=== PATIENT | female | born 1980 | race Caucasian/White ===

== ENCOUNTER 2017-11-20 12:41 | Emergency (ER) | payer BC, OTHER ==
[2017-11-20] MEDS ORDERED: ACETAMINOPHEN TAB 500 MG TAB PO STA (13:02)
--- NOTE | 2017-11-20 13:05 | ED ---
General Adult HPI - General Chief complaint: Upper Respiratory Infection Stated complaint: SOB Time Seen by Provider: 11/20/17 12:57 Source: patient, RN notes reviewed Mode of arrival: ambulatory Limitations: no limitations - History of Present Illness Initial comments: 37 yo female presents to the ER with cc of fever. Patient states that she's had this for the past 3 days. She's had some cough and difficulty in breathing as well. She had her son's breathing treatment which did not seem to help. She states she's been altering Motrin and Tylenol and she is due for Tylenol 1: 00 today. She states that she just cannot seem to get the fever to break and she just feels body aches this cough and congestion she thought that she should be seen. Patient denies any other symptoms at this time. Patient denies any nausea or vomiting with this. Patient denies any recent back pain, abdominal pain, nausea vomiting, numbness or tingling, dysuria or hematuria, constipation or diarrhea, headaches or visual changes, or any other current symptoms. - Related Data Home Medications Medication Instructions Recorded Confirmed Clarithromycin [Biaxin] 1,000 mg PO DAILY 03/20/14 03/20/14 Desvenlafaxine Succinate [Pristiq 100 mg PO DAILY 03/20/14 03/20/14 ER] Previous Rx's Medication Instructions Recorded HYDROcodone/APAP 7.5-325MG [Foster 1 each PO Q6HR PRN #15 tab 03/21/14 7.5] Ondansetron Odt [Zofran Odt] 4 mg PO Q8HR PRN #21 tab 03/21/14 methylPREDNISolone [Medrol] 4 mg PO DIRECTED #1 tab.ds.pk 03/21/14 Allergies Allergy/AdvReac Type Severity Reaction Status Date / Time No Known Allergies Allergy Verified 11/20/17 12:56 Review of Systems ROS Statement: Those systems with pertinent positive or pertinent negative responses have been documented in the HPI. ROS Other: All systems not noted in ROS Statement are negative. Past Medical History Past Medical History: No Reported History History of Any Multi-Drug Resistant Organisms: None Reported Past Surgical History: Section Past Psychological History: No Psychological Hx Reported Smoking Status: Never smoker Past Alcohol Use History: None Reported Past Drug Use History: None Reported General Exam - General Exam Comments Initial Comments: General exam: Alert, active, comfortable in no apparent distress Head: Normocephalic Eyes: Normal reaction of pupils, equal size, normal range of extraocular motion Ears: normal external ear canals, pink tympanic membranes with normal cone of light Nose: clear with pink turbinates Throat: no erythema or exudates with normal sized tonsils Neck: no masses, no nuchal rigidity Chest: no chest wall deformity Lungs: equal air entry with no crackles or wheeze CVS: S1 and S2 normal with no audible mumurs, regular rhythm Abdomen: no hepatosplenomegaly, normal bowel sounds, no guarding or rigidity Spine: no scoliosis or deformity Skin: no rashes Neurological: No focal deficits, tone is normal in all 4 extremities Limitations: no limitations Course Vital Signs 11/20/17 12:54 Temperature 101.2 F H Pulse Rate 111 H Respiratory 18 Rate Blood Pressure 130/92 O2 Sat by Pulse 98 Oximetry Medical Decision Making - Medical Decision Making 37-year-old female presents for cough fever. This time patient is positive for influenza A. At this time she is on of her treatment. We discussed continuing Motrin Tylenol. We discussed return parameters and follow-up and all questions. Patient stated that she understood and she is given this plan. This time she will be discharged home. - Radiology Data Radiology results: report reviewed, image reviewed Disposition Clinical Impression: Influenza A Disposition: HOME SELF-CARE Condition: Stable Instructions: Influenza (ED) Additional Instructions: Please use medication as discussed. Please follow up with family doctor if symptoms have not improved over the next two days. Please return to the emergency room if your symptoms increase or worsen or for any other concerns. Referrals: Bibi Zarate III, MD [Primary Care Provider] - 1-2 days Time of Disposition: 13:49
--- NOTE | 2017-11-20 13:20 | XR ---
EXAMINATION TYPE: XR chest 2V DATE OF EXAM: 11/20/2017 COMPARISON: 03/20/2014 HISTORY: Flulike symptoms TECHNIQUE: Frontal and lateral views of the chest are obtained. FINDINGS: There is no focal air space opacity, pleural effusion, or pneumothorax seen. The cardiac silhouette size is upper limits of normal and has mildly enlarged since the prior exam, partially att ributable to differences in technique and inspiration. The osseous structures are intact. IMPRESSION: No acute cardiopulmonary process.
[2017-11-20 14:15] VITALS: BP 121/65; PULSE 99; RESP 16; TEMP 100
== END 2017-11-20 14:13 | disposition home or self-care (01) ==
LOC: EC 12:41
DX: J10.1 Influenza due to other identified influenza virus with other respiratory manifestations (principal); Z79.899 Other long term (current) drug therapy
CPT/HCPCS: 71046; 87502; 99283

== ENCOUNTER → 2017-12-12 | Outpatient (CLI) | payer OTHER | END | disposition home or self-care (01) | LOC: LABWHC1 13:24 | PROVIDERS: ATTEND Nurse Practitioner Family | DX: M79.1 Myalgia (principal) | CPT/HCPCS: 36415; 85652 ==

== ENCOUNTER 2019-02-25 17:23 | Emergency (ER) | payer OTHER ==
--- NOTE | 2019-02-25 18:51 | ED ---
General Adult HPI - General Chief complaint: Extremity Injury, Lower Stated complaint: Rt leg pain Time Seen by Provider: 02/25/19 17:47 Source: patient Mode of arrival: ambulatory Limitations: no limitations - History of Present Illness Initial comments: Patient is a 39-year-old female presents to the emergency department with right knee pain. Patient states she developed minor swelling and pain yesterday so she placed an ice pack and took 800 milligram ibuprofen to control pain. Patient states when she woke up this morning the knee was even more painful and more swollen. Patient states the knee is also warm. Patient reports the pain is exacerbated with any movement. Patient does report slight pain radiation along the vastus lateralis. Patient denies hitting the knee against any objects. Patient also denies having systemic fever although she has been taking the ibuprofen since her condition has occurred. - Related Data Home Medications Medication Instructions Recorded Confirmed DULoxetine HCL [Cymbalta] 120 mg PO HS 02/25/19 02/25/19 Allergies Allergy/AdvReac Type Severity Reaction Status Date / Time No Known Allergies Allergy Verified 02/25/19 18:11 Review of Systems ROS Statement: Those systems with pertinent positive or pertinent negative responses have been documented in the HPI. ROS Other: All systems not noted in ROS Statement are negative. Past Medical History Past Medical History: No Reported History History of Any Multi-Drug Resistant Organisms: None Reported Past Surgical History: Section Additional Past Surgical History / Comment(s): D&C Past Psychological History: No Psychological Hx Reported Smoking Status: Never smoker Past Alcohol Use History: None Reported Past Drug Use History: None Reported General Exam Limitations: no limitations General appearance: alert, in no apparent distress Head exam: Present: atraumatic, normocephalic, normal inspection Eye exam: Present: normal appearance, PERRL, EOMI. Absent: scleral icterus, conjunctival injection Pupils: Present: normal accommodation ENT exam: Present: normal exam Neck exam: Present: normal inspection, full ROM Respiratory exam: Present: normal lung sounds bilaterally. Absent: respiratory distress, wheezes Cardiovascular Exam: Present: regular rate, normal rhythm, normal heart sounds Right Hip exam: Present: normal inspection, full ROM Upper Leg exam: Present: tenderness (Mild pain with movement along the vastus lateralis.). Absent: swelling Knee exam: Present: full ROM (Limited range of motion due to pain.), tenderness (Pain with flexion and extension.), swelling, erythema, pain w/ pronation/supination. Absent: abrasion, laceration, ecchymosis, deformity Lower Leg exam: Present: normal inspection, full ROM Ankle exam: Present: normal inspection, full ROM Foot/Toe exam: Present: normal inspection, full ROM Neurovascular tendon exam: Present: no vascular compromise Gait: observed and limited by pain Back exam: Present: normal inspection, full ROM Neurological exam: Present: alert, oriented X3 Psychiatric exam: Present: normal affect, normal mood Skin exam: Present: warm, normal color Course Vital Signs 02/25/19 02/25/19 17:34 22:22 Temperature 98.1 F 98.0 F Pulse Rate 110 H 79 Respiratory 20 18 Rate Blood Pressure 123/73 132/81 O2 Sat by Pulse 98 99 Oximetry Medical Decision Making - Medical Decision Making Patient 39-year-old female presented to emergency department for right knee pain and swelling. X-ray of the knee was negative. Ultrasound duplex of her right calf was negative for DVT but is suggestive of a popliteal cyst. Patient given Toradol to alleviate pain. Patient advised to alternate between Tylenol and ibuprofen for pain control. Patient advised to follow up orthopedics. Patient advised to return to emergency department if symptoms worsen. Case discussed with physician. Disposition Clinical Impression: Knee pain, acute Disposition: HOME SELF-CARE Condition: Stable Instructions (If sedation given, give patient instructions): Knee Sprain (DC) Additional Instructions: Please alternate between Tylenol and ibuprofen for pain control. Please follow- up with orthopedics. Please refer to emergency department if symptoms worsen. Is patient prescribed a controlled substance at d/c from ED?: No Referrals: Bibi Zarate III, MD [Primary Care Provider] - 1-2 days Daniel Crabtree MD [STAFF PHYSICIAN] - 1-2 days Time of Disposition: 22:45
--- NOTE | 2019-02-25 19:01 | XR ---
EXAMINATION TYPE: XR knee complete RT DATE OF EXAM: 02/25/2019 COMPARISON: NONE HISTORY: Pain and swelling TECHNIQUE: 3 views FINDINGS: There is evidence of mild knee joint effusion. I see no fracture nor dislocation. Joint spa truman are fairly normal. IMPRESSION: Knee joint effusion. No fracture seen.
--- NOTE | 2019-02-25 20:42 | US ---
EXAMINATION TYPE: US venous doppler duplex LE RT DATE OF EXAM: 02/25/2019 8:18 PM COMPARISON: NONE CLINICAL HISTORY: Pain. Right leg pain at knee and edema. SIDE PERFORMED: Right TECHNIQUE: The lower extremity deep venous system is examined utilizing real time linear array sonog ronda with graded compression, doppler sonography and color-flow sonography. VESSELS IMAGED: External Iliac Vein (EIV) Common Femoral Vein Deep Femoral Vein Greater Saphenous Vein * Femoral Vein Popliteal Vein Small Saphenous Vein * Proximal Calf Veins (* superficial vessels) Right Leg: Negative for DVT Area of fluid seen lateral to knee area of pain measuring 2.8 x .6 x 1.8cm. IMPRESSION: No evidence of deep venous thrombosis. Fluid collection suggestive of popliteal cyst.
[2019-02-25] MEDS ORDERED: KETOROLAC 30 MG/ML 1 ML VIAL IM STA (22:06)
[2019-02-25 22:23] VITALS: BP 132/81; PULSE 79; RESP 18; TEMP 98
[2019-02-26] MEDS ORDERED: KETOROLAC 30 MG/ML 1 ML VIAL IM SCH
== END 2019-02-25 23:05 | disposition home or self-care (01) ==
LOC: EC 17:23
DX: M25.561 Pain in right knee (principal); M25.461 Effusion, right knee; Z79.899 Other long term (current) drug therapy
CPT/HCPCS: 73562; 93971; 99283; 96372; J1885

== ENCOUNTER 2019-10-19 20:10 | Emergency (ER) | payer OTHER ==
[2019-10-19 20:24] VITALS: TEMP 98.3
[2019-10-19] MEDS ORDERED: METOCLOPRAMIDE 5 MG/ML 2 ML VIAL IVP STA (20:43)
[2019-10-19] MEDS ORDERED: ACETAMINOPHEN TAB 325 MG TAB PO STA (20:43)
[2019-10-19] MEDS ORDERED: MAGNESIUM SULFATE-D5W PMX 1 GM in DEXTROSE/WATER 1 100ML.BAG IVPB ONE (20:43)
[2019-10-19] MEDS ORDERED: diphenhydrAMINE 50 MG/ML 1 ML VIAL IVP STA (20:43)
[2019-10-19] MEDS ORDERED: SODIUM CHLORIDE 0.9% 1,000 ML IV STA (20:43)
--- NOTE | 2019-10-19 20:54 | ED ---
General Adult HPI - General Chief complaint: Headache Stated complaint: MIGRAIN, PASSED OUT IN SHOWER Time Seen by Provider: 10/19/19 20:32 Source: patient, RN notes reviewed, old records reviewed Mode of arrival: ambulatory Limitations: no limitations - History of Present Illness Initial comments: 39-year-old female presenting with four-day history of headache. Patient has history of migraine headaches. States the character of this headache is typical of her migraines but does not typically last 4 days. Gradual onset of a frontal and occipital headache. Some associated nausea, no vomiting. Mild photophobia which is typical of her headaches. She takes sumatriptan and it has been seen by neurology regarding these headaches. She also reports generalized weakness and fatigue. She has a history of fibromyalgia and rheumatoid arthritis. She denies focal numbness or weakness. Denies thunderclap headache. This is not the worst headache of her life. She denies URI symptoms. Denies chest pain or dyspnea. Denies abdominal pain. She's had decreased appetite and decreased by mouth intake over the past several days. She had been taking a hot shower prior to arrival and had momentary loss consciousness, she was lightheaded prior to t his. - Related Data Home Medications Medication Instructions Recorded Confirmed DULoxetine HCL [Cymbalta] 120 mg PO HS 02/25/19 02/25/19 Allergies Allergy/AdvReac Type Severity Reaction Status Date / Time No Known Allergies Allergy Verified 10/19/19 20:24 Review of Systems ROS Statement: Those systems with pertinent positive or pertinent negative responses have been documented in the HPI. ROS Other: All systems not noted in ROS Statement are negative. Past Medical History Past Medical History: No Reported History History of Any Multi-Drug Resistant Organisms: None Reported Past Surgical History: Section Additional Past Surgical History / Comment(s): D&C Past Psychological History: No Psychological Hx Reported Smoking Status: Never smoker Past Alcohol Use History: None Reported Past Drug Use History: None Reported General Exam Limitations: no limitations General appearance: alert, in no apparent distress Head exam: Present: atraumatic, normocephalic Eye exam: Present: normal appearance, PERRL, EOMI. Absent: scleral icterus, periorbital swelling, periorbital tenderness ENT exam: Present: mucous membranes dry Neck exam: Present: normal inspection. Absent: tenderness, meningismus Respiratory exam: Present: normal lung sounds bilaterally. Absent: respiratory distress, wheezes, rales Cardiovascular Exam: Present: regular rate, normal rhythm GI/Abdominal exam: Present: soft. Absent: distended, tenderness, guarding Extremities exam: Present: normal inspection, normal capillary refill. Absent: pedal edema, calf tenderness Neurological exam: Present: alert, oriented X3, CN II-XII intact. Absent: motor sensory deficit Psychiatric exam: Present: normal affect, normal mood Skin exam: Present: warm, dry, intact. Absent: cyanosis, diaphoretic Course Vital Signs 10/19/19 10/19/19 20:22 21:43 Temperature 98.3 F Pulse Rate 75 81 Respiratory 16 16 Rate Blood Pressure 146/96 139/71 O2 Sat by Pulse 98 98 Oximetry EKG Findings - EKG Comments: EKG Findings:: EKG: Normal sinus rhythm, low voltage, rate of 73, MO interval 206, QRS duration 98, QTC 436 Medical Decision Making - Medical Decision Making 39 -year-old female presenting for evaluation of headache. Headaches similar in character to previous migraine headaches. She's had this for 4 days. She's had decreased appetite and oral intake over this time. No fever. No alarming features on history or physical exam. Imaging reviewed from previous headache workup, including CT angiography which is negative for any dangerous of. She has stable vitals and a nonfocal neurologic exam. Normal CBC, normal CMP, negative urinalysis. She's given Reglan, Benadryl, IV hydration and on reevaluation she states her headache is significantly improved. She has good outpatient follow-up. She will return with worsening or changing symptoms. - Lab Data Result diagrams: 10/19/19 21:05 10/19/19 21:05 Lab Results 10/19/19 10/19/19 10/19/19 Range/Units 21:05 21:05 21:30 WBC 8.3 (3.8-10.6) k/uL RBC 4.51 (3.80-5.40) m/uL Hgb 12.4 (11.4-16.0) gm/dL Hct 38.5 (34.0-46.0) % MCV 85.5 (80.0-100.0) fL MCH 27.4 (25.0-35.0) pg MCHC 32.1 (31.0-37.0) g/dL RDW 14.5 (11.5-15.5) % Plt Count 350 (150-450) k/uL Neutrophils % 61 % Lymphocytes % 29 % Monocytes % 6 % Eosinophils % 2 % Basophils % 0 % Neutrophils # 5.1 (1.3-7.7) k/uL Lymphocytes # 2.4 (1.0-4.8) k/uL Monocytes # 0.5 (0-1.0) k/uL Eosinophils # 0.1 (0-0.7) k/uL Basophils # 0.0 (0-0.2) k/uL Sodium 137 (137-145) mmol/L Potassium 4.0 (3.5-5.1) mmol/L Chloride 105 (98-107) mmol/L Carbon Dioxide 24 (22-30) mmol/L Anion Gap 8 mmol/L BUN 12 (7-17) mg/dL Creatinine 0.73 (0.52-1.04) mg/dL Est GFR (CKD-EPI)AfAm >90 (>60 ml/min/1.73 sqM) Est GFR (CKD-EPI)NonAf >90 (>60 ml/min/1.73 sqM) Glucose 86 (74-99) mg/dL Calcium 9.4 (8.4-10.2) mg/dL Total Bilirubin 0.4 (0.2-1.3) mg/dL AST 26 (14-36) U/L ALT 15 (4-34) U/L Alkaline Phosphatase 64 (38-126) U/L Total Protein 6.8 (6.3-8.2) g/dL Albumin 4.3 (3.5-5.0) g/dL Urine Color Urine Appearance (Clear) Urine pH (5.0-8.0) Ur Specific Mayer (1.001-1.035) Urine Protein (Negative) Urine Glucose (UA) (Negative) Urine Ketones (Negative) Urine Blood (Negative) Urine Nitrite (Negative) Urine Bilirubin (Negative) Urine Urobilinogen (<2.0) mg/dL Ur Leukocyte Esterase (Negative) Urine HCG, Qual Not Detected (Not Detectd) 10/19/19 Range/Units 21:30 WBC (3.8-10.6) k/uL RBC (3.80-5.40) m/uL Hgb (11.4-16.0) gm/dL Hct (34.0-46.0) % MCV (80.0-100.0) fL MCH (25.0-35.0) pg MCHC (31.0-37.0) g/dL RDW (11.5-15.5) % Plt Count (150-450) k/uL Neutrophils % % Lymphocytes % % Monocytes % % Eosinophils % % Basophils % % Neutrophils # (1.3-7.7) k/uL Lymphocytes # (1.0-4.8) k/uL Monocytes # (0-1.0) k/uL Eosinophils # (0-0.7) k/uL Basophils # (0-0.2) k/uL Sodium (137-145) mmol/L Potassium (3.5-5.1) mmol/L Chloride (98-107) mmol/L Carbon Dioxide (22-30) mmol/L Anion Gap mmol/L BUN (7-17) mg/dL Creatinine (0.52-1.04) mg/dL Est GFR (CKD-EPI)AfAm (>60 ml/min/1.73 sqM) Est GFR (CKD-EPI)NonAf (>60 ml/min/1.73 sqM) Glucose (74-99) mg/dL Calcium (8.4-10.2) mg/dL Total Bilirubin (0.2-1.3) mg/dL AST (14-36) U/L ALT (4-34) U/L Alkaline Phosphatase (38-126) U/L Total Protein (6.3-8.2) g/dL Albumin (3.5-5.0) g/dL Urine Color Yellow Urine Appearance Clear (Clear) Urine pH 6.5 (5.0-8.0) Ur Specific Mayer 1.012 (1.001-1.035) Urine Protein Negative (Negative) Urine Glucose (UA) Negative (Negative) Urine Ketones Negative (Negative) Urine Blood Negative (Negative) Urine Nitrite Negative (Negative) Urine Bilirubin Negative (Negative) Urine Urobilinogen <2.0 (<2.0) mg/dL Ur Leukocyte Esterase Negative (Negative) Urine HCG, Qual (Not Detectd) Disposition Clinical Impression: Migraine headache Disposition: HOME SELF-CARE Condition: Fair Instructions (If sedation given, give patient instructions): Migraine Headache (ED) Is patient prescribed a controlled substance at d/c from ED?: No Referrals: Bibi Zarate III, MD [Primary Care Provider] - 1-2 days Time of Disposition: 22:10
[2019-10-19 21:14] LABS: Basophils % (A) 0 %; Eosinophils # (A) 0.1 k/uL (0-0.7); Eosinophils % (A) 2 %; HCT 38.5 % (34.0-46.0); HGB 12.4 gm/dL (11.4-16.0); Lymphocytes # (A) 2.4 k/uL (1.0-4.8); Lymphocytes % (A) 29 %; MCH 27.4 pg (25.0-35.0); MCHC 32.1 g/dL (31.0-37.0); MCV 85.5 fL (80.0-100.0); Mean Platelet Volume 6.7; Monocytes # (A) 0.5 k/uL (0-1.0); Monocytes % (A) 6 %; Neutrophils # (A) 5.1 k/uL (1.3-7.7); Neutrophils % (A) 61 %; Platelet Count 350 k/uL (150-450); RBC 4.51 m/uL (3.80-5.40); RDW 14.5 % (11.5-15.5); WBC 8.3 k/uL (3.8-10.6)
[2019-10-19 21:22] LABS: ALT 15 U/L (4-34); AST 26 U/L (14-36); African American GFR (CKD) >90 (>60 ml/min/1.73 sqM); Albumin 4.3 g/dL (3.5-5.0); Alkaline Phosphatase 64 U/L (38-126); Anion Gap 8 mmol/L; Blood Urea Nitrogen 12 mg/dL (7-17); Calcium 9.4 mg/dL (8.4-10.2); Carbon Dioxide 24 mmol/L (22-30); Chloride 105 mmol/L (98-107); Glucose 86 mg/dL (74-99); Non-African American GFR(CKD) >90 (>60 ml/min/1.73 sqM); Sodium 137 mmol/L (137-145); Total Bilirubin 0.4 mg/dL (0.2-1.3); Total Protein 6.8 g/dL (6.3-8.2)
[2019-10-19 21:54] LABS: Appearance,Urine Clear (Clear); Bilirubin,Urine Negative (Negative); Blood,Urine Negative (Negative); Color,Urine Yellow; Glucose,Urine (UA) Negative (Negative); Ketones,Urine Negative (Negative); Leukocyte Esterase,Urine Negative (Negative); Nitrite,Urine Negative (Negative); PH, Urine 6.5 (5.0-8.0); Protein,Urine Negative (Negative); Specific Gravity,Urine 1.012 (1.001-1.035); Urobilinogen,Urine <2.0 mg/dL (<2.0)
[2019-10-19 22:20] VITALS: BP 131/72; PULSE 72; RESP 18
== END 2019-10-19 22:20 | disposition home or self-care (01) ==
LOC: EC 20:10
DX: G43.909 Migraine, unspecified, not intractable, without status migrainosus (principal); R53.1 Weakness; R53.83 Other fatigue; M79.7 Fibromyalgia; Z79.899 Other long term (current) drug therapy
CPT/HCPCS: 99284; 96365; 96375 ×2; 36415; 93005; 80053; 85025; 81003; 81025; J1200; J2765; J3475

== ENCOUNTER 2020-04-02 00:13 | Emergency (ER) | payer OTHER ==
[2020-04-02] MEDS ORDERED: ACETAMINOPHEN TAB 325 MG TAB PO STA (02:17)
[2020-04-02 02:19] LABS: Basophils % (A) 1 %; Eosinophils # (A) 0.1 k/uL (0-0.7); Eosinophils % (A) 1 %; HCT 41.8 % (34.0-46.0); HGB 13.5 gm/dL (11.4-16.0); Lymphocytes % (A) 18 %; MCHC 32.3 g/dL (31.0-37.0); MCV 86.6 fL (80.0-100.0); Mean Platelet Volume 7.6; Monocytes # (A) 0.3 k/uL (0-1.0); Monocytes % (A) 6 %; Neutrophils # (A) 3.9 k/uL (1.3-7.7); Neutrophils % (A) 71 %; Platelet Count 265 k/uL (150-450); RBC 4.83 m/uL (3.80-5.40); RDW 14.3 % (11.5-15.5); WBC 5.4 k/uL (3.8-10.6)
[2020-04-02] MEDS ORDERED: SODIUM CHLORIDE 0.9% 1,000 ML IV ONE (02:21)
[2020-04-02 02:48] LABS: ALT 100 U/L (4-34); AST 105 U/L (14-36); African American GFR (CKD) >90 (>60 ml/min/1.73 sqM); Albumin 3.9 g/dL (3.5-5.0); Alkaline Phosphatase 81 U/L (38-126); Amylase 63 U/L (30-110); Anion Gap 8 mmol/L; Blood Urea Nitrogen 10 mg/dL (7-17); C Reactive Protein 34.7 mg/L (<10.0); Calcium 8.9 mg/dL (8.4-10.2); Carbon Dioxide 24 mmol/L (22-30); Chloride 103 mmol/L (98-107); Glucose 85 mg/dL (74-99); Non-African American GFR(CKD) >90 (>60 ml/min/1.73 sqM); Potassium 4.3 mmol/L (3.5-5.1); Sodium 135 mmol/L (137-145); Total Bilirubin <0.1 mg/dL (0.2-1.3); Total Protein 6.5 g/dL (6.3-8.2)
[2020-04-02 03:09] VITALS: RESP 16
[2020-04-02 03:36] LABS: Appearance,Urine Clear (Clear); Bilirubin,Urine Negative (Negative); Blood,Urine Negative (Negative); Color,Urine Yellow; Glucose,Urine (UA) Negative (Negative); Ketones,Urine 1+ (Negative); Leukocyte Esterase,Urine Negative (Negative); Nitrite,Urine Negative (Negative); PH, Urine 6.5 (5.0-8.0); Protein,Urine Negative (Negative); Specific Gravity,Urine 1.033 (1.001-1.035); Urobilinogen,Urine <2.0 mg/dL (<2.0)
--- NOTE | 2020-04-02 03:54 | CT ---
EXAMINATION TYPE: CT abdomen pelvis w con DATE OF EXAM: 04/02/2020 COMPARISON: 12/08/2010 HISTORY: General Abd. pain CT DLP: 873.1 mGycm Automated exposure control for dose reduction was used. CONTRAST: Performed with IV Contrast, patient injected with 100 mL of Isovue 300. Lung bases are clear. There is no pleural effusion. Heart size is normal. There is no pericardial eff usion. Liver and gallbladder appear normal. Bile ducts are not dilated. Spleen appears normal. Stomach is in tact. There is no evidence of pancreatic mass. There is no adrenal mass. The kidneys have normal size and contour. There is no hydronephrosis. There is normal contrast opacification of the kidneys. Delayed images show fairly normal symmetric renal e xcretion. There is no retroperitoneal adenopathy. Bladder distends smoothly. There is no inguinal her hugo. There is no free fluid in the pelvis. Uterus is retroverted. There is no sign of a pelvic mass. There is large terminal ileum with fecal material. There is no sign of thickened appendix. Appendix i s partly seen filled with air and appears normal. There is retained fecal material throughout the lar ge bowel. Lumbar vertebra have normal spacing and alignment. Posterior elements are intact. Bony pelvis is inta ct. IMPRESSION: There is retained fecal material and constipation in the large bowel and backed up into the terminal ileum. Normal appendix. This is a change compared to old exam.
[2020-04-02] MEDS ORDERED: MORPHINE SULFATE 4 MG/ML SYRINGE IV STA (04:12)
[2020-04-02] MEDS ORDERED: ONDANSETRON 4 MG/2 ML VIAL IVP STA (04:12)
[2020-04-02] MEDS ORDERED: DEXTROSE 5%-0.45% NACL 1,000 ML IV ONE (04:13)
[2020-04-02 05:05] VITALS: BP 128/78; PULSE 90
[2020-04-02 05:15] VITALS: TEMP 98.9
--- NOTE | 2020-04-02 05:16 | ED ---
Abdominal Pain HPI - General Chief Complaint: Abdominal Pain Stated Complaint: Abdominal pain, fever Time Seen by Provider: 04/02/20 00:33 Source: patient Mode of arrival: ambulatory Limitations: no limitations - History of Present Illness MD Complaint: abdominal pain -: days(s) Location: LLQ, RLQ Radiation: none Migration to: no migration Severity: moderate Quality: cramping, fullness Consistency: constant Improves With: nothing Worsens With: nothing Associated Symptoms: constipation - Related Data Home Medications Medication Instructions Recorded Confirmed DULoxetine HCL [Cymbalta] 120 mg PO HS 02/25/19 04/03/20 Acetaminophen Tab [Tylenol] 1,000 mg PO Q6HR PRN 04/03/20 04/03/20 Meloxicam [Mobic] 15 mg PO HS 04/03/20 04/03/20 metFORMIN HCL [Glucophage] 500 mg PO BID 04/03/20 04/03/20 Allergies Allergy/AdvReac Type Severity Reaction Status Date / Time No Known Allergies Allergy Verified 04/03/20 20:29 Review of Systems ROS Statement: Those systems with pertinent positive or pertinent negative responses have been documented in the HPI. ROS Other: All systems not noted in ROS Statement are negative. Constitutional: Denies: fever, chills Respiratory: Denies: cough, dyspnea Cardiovascular: Denies: chest pain, palpitations, edema Gastrointestinal: Reports: abdominal pain, constipation. Denies: nausea, vomiting, diarrhea, melena, hematochezia Genitourinary: Denies: dysuria, hematuria Musculoskeletal: Denies: back pain Skin: Denies: rash Neurological: Denies: headache, weakness, numbness Past Medical History Past Medical History: No Reported History, Rheumatoid Arthritis (RA) Additional Past Medical History / Comment(s): fibermyalgia History of Any Multi-Drug Resistant Organisms: None Reported Past Surgical History: Section Additional Past Surgical History / Comment(s): D&C Past Psychological History: No Psychological Hx Reported Smoking Status: Never smoker Past Alcohol Use History: None Reported Past Drug Use History: None Reported General Exam Limitations: no limitations General appearance: alert, in no apparent distress Head exam: Present: atraumatic, normocephalic Eye exam: Present: normal appearance. Absent: scleral icterus, conjunctival injection ENT exam: Present: normal oropharynx Neck exam: Present: normal inspection Respiratory exam: Present: normal lung sounds bilaterally. Absent: respiratory distress, wheezes, rales, rhonchi, stridor Cardiovascular Exam: Present: regular rate, normal rhythm, normal heart sounds. Absent: systolic murmur, diastolic murmur, rubs, gallop GI/Abdominal exam: Present: soft. Absent: distended, tenderness, guarding, rebound, rigid, mass, pulsatile mass, hernia Extremities exam: Present: normal inspection, normal capillary refill. Absent: pedal edema, calf tenderness Back exam: Present: normal inspection. Absent: CVA tenderness (R), CVA tenderness (L) Neurological exam: Present: alert Skin exam: Present: warm, dry, intact, normal color. Absent: rash Course Vital Signs 04/02/20 04/02/20 04/02/20 00:16 01:25 03:00 Temperature 99.5 F 101.2 F H 100.1 F H Pulse Rate 94 101 H Respiratory 18 16 Rate Blood Pressure 147/87 134/94 O2 Sat by Pulse 98 98 Oximetry 04/02/20 04/02/20 04/02/20 04:00 05:00 05:15 Temperature 98.9 F Pulse Rate 97 90 Respiratory 16 16 Rate Blood Pressure 132/92 128/78 O2 Sat by Pulse 97 98 Oximetry Medical Decision Making - Medical Decision Making This patient is a 40-year-old woman presenting with bilateral lower abdominal pain that she states feels as if she is been constipated. The patient's is found to have mild elevation of the AST and ALT on labs. The patient is feeling better following medication and would prefer to go home and follow-up. I did send viral hepatitis panel though patient not having risk factors. Discussed appropriate further care and follow-up as well as return parameters. - Lab Data Result diagrams: 04/02/20 00:36 04/02/20 00:36 Lab Results 04/02/20 04/02/20 04/02/20 Range/Units 00:36 00:36 03:25 WBC 5.4 (3.8-10.6) k/uL RBC 4.83 (3.80-5.40) m/uL Hgb 13.5 (11.4-16.0) gm/dL Hct 41.8 (34.0-46.0) % MCV 86.6 (80.0-100.0) fL MCH 28.0 (25.0-35.0) pg MCHC 32.3 (31.0-37.0) g/dL RDW 14.3 (11.5-15.5) % Plt Count 265 (150-450) k/uL Neutrophils % 71 % Lymphocytes % 18 % Monocytes % 6 % Eosinophils % 1 % Basophils % 1 % Neutrophils # 3.9 (1.3-7.7) k/uL Lymphocytes # 1.0 (1.0-4.8) k/uL Monocytes # 0.3 (0-1.0) k/uL Eosinophils # 0.1 (0-0.7) k/uL Basophils # 0.0 (0-0.2) k/uL Sodium 135 L (137-145) mmol/L Potassium 4.3 (3.5-5.1) mmol/L Chloride 103 (98-107) mmol/L Carbon Dioxide 24 (22-30) mmol/L Anion Gap 8 mmol/L BUN 10 (7-17) mg/dL Creatinine 0.78 (0.52-1.04) mg/dL Est GFR (CKD-EPI)AfAm >90 (>60 ml/min/1.73 sqM) Est GFR (CKD-EPI)NonAf >90 (>60 ml/min/1.73 sqM) Glucose 85 (74-99) mg/dL Calcium 8.9 (8.4-10.2) mg/dL Total Bilirubin <0.1 L (0.2-1.3) mg/dL AST 105 H (14-36) U/L ALT 100 H (4-34) U/L Alkaline Phosphatase 81 (38-126) U/L C-Reactive Protein 34.7 H (<10.0) mg/L Total Protein 6.5 (6.3-8.2) g/dL Albumin 3.9 (3.5-5.0) g/dL Amylase 63 (30-110) U/L Lipase 249 (23-300) U/L Urine Color Urine Appearance (Clear) Urine pH (5.0-8.0) Ur Specific [place] (1.001-1.035) Urine Protein (Negative) Urine Glucose (UA) (Negative) Urine Ketones (Negative) Urine Blood (Negative) Urine Nitrite (Negative) Urine Bilirubin (Negative) Urine Urobilinogen (<2.0) mg/dL Ur Leukocyte Esterase (Negative) Urine HCG, Qual Not Detected (Not Detectd) Coronavirus (PCR) (Not Detected) Hepatitis A IgM Ab Hep Bs Antigen (Non-Reactive) Hep B Core IgM Ab (Non-Reactive) Hep C IgG Ab (Non-Reactive) Heterophile Antibody (Negative) 04/02/20 04/02/20 04/02/20 Range/Units 03:25 03:25 04:00 WBC (3.8-10.6) k/uL RBC (3.80-5.40) m/uL Hgb (11.4-16.0) gm/dL Hct (34.0-46.0) % MCV (80.0-100.0) fL MCH (25.0-35.0) pg MCHC (31.0-37.0) g/dL RDW (11.5-15.5) % Plt Count (150-450) k/uL Neutrophils % % Lymphocytes % % Monocytes % % Eosinophils % % Basophils % % Neutrophils # (1.3-7.7) k/uL Lymphocytes # (1.0-4.8) k/uL Monocytes # (0-1.0) k/uL Eosinophils # (0-0.7) k/uL Basophils # (0-0.2) k/uL Sodium (137-145) mmol/L Potassium (3.5-5.1) mmol/L Chloride (98-107) mmol/L Carbon Dioxide (22-30) mmol/L Anion Gap mmol/L BUN (7-17) mg/dL Creatinine (0.52-1.04) mg/dL Est GFR (CKD-EPI)AfAm (>60 ml/min/1.73 sqM) Est GFR (CKD-EPI)NonAf (>60 ml/min/1.73 sqM) Glucose (74-99) mg/dL Calcium (8.4-10.2) mg/dL Total Bilirubin (0.2-1.3) mg/dL AST (14-36) U/L ALT (4-34) U/L Alkaline Phosphatase (38-126) U/L C-Reactive Protein (<10.0) mg/L Total Protein (6.3-8.2) g/dL Albumin (3.5-5.0) g/dL Amylase (30-110) U/L Lipase (23-300) U/L Urine Color Yellow Urine Appearance Clear (Clear) Urine pH 6.5 (5.0-8.0) Ur Specific [place] 1.033 (1.001-1.035) Urine Protein Negative (Negative) Urine Glucose (UA) Negative (Negative) Urine Ketones 1+ H (Negative) Urine Blood Negative (Negative) Urine Nitrite Negative (Negative) Urine Bilirubin Negative (Negative) Urine Urobilinogen <2.0 (<2.0) mg/dL Ur Leukocyte Esterase Negative (Negative) Urine HCG, Qual (Not Detectd) Coronavirus (PCR) Not Detected (Not Detected) Hepatitis A IgM Ab Hep Bs Antigen (Non-Reactive) Hep B Core IgM Ab (Non-Reactive) Hep C IgG Ab (Non-Reactive) Heterophile Antibody Negative (Negative) 04/02/20 04/02/20 Range/Units 04:24 04:53 WBC (3.8-10.6) k/uL RBC (3.80-5.40) m/uL Hgb (11.4-16.0) gm/dL Hct (34.0-46.0) % MCV (80.0-100.0) fL MCH (25.0-35.0) pg MCHC (31.0-37.0) g/dL RDW (11.5-15.5) % Plt Count (150-450) k/uL Neutrophils % % Lymphocytes % % Monocytes % % Eosinophils % % Basophils % % Neutrophils # (1.3-7.7) k/uL Lymphocytes # (1.0-4.8) k/uL Monocytes # (0-1.0) k/uL Eosinophils # (0-0.7) k/uL Basophils # (0-0.2) k/uL Sodium (137-145) mmol/L Potassium (3.5-5.1) mmol/L Chloride (98-107) mmol/L Carbon Dioxide (22-30) mmol/L Anion Gap mmol/L BUN (7-17) mg/dL Creatinine (0.52-1.04) mg/dL Est GFR (CKD-EPI)AfAm (>60 ml/min/1.73 sqM) Est GFR (CKD-EPI)NonAf (>60 ml/min/1.73 sqM) Glucose (74-99) mg/dL Calcium (8.4-10.2) mg/dL Total Bilirubin (0.2-1.3) mg/dL AST (14-36) U/L ALT (4-34) U/L Alkaline Phosphatase (38-126) U/L C-Reactive Protein (<10.0) mg/L Total Protein (6.3-8.2) g/dL Albumin (3.5-5.0) g/dL Amylase (30-110) U/L Lipase (23-300) U/L Urine Color Urine Appearance (Clear) Urine pH (5.0-8.0) Ur Specific [place] (1.001-1.035) Urine Protein (Negative) Urine Glucose (UA) (Negative) Urine Ketones (Negative) Urine Blood (Negative) Urine Nitrite (Negative) Urine Bilirubin (Negative) Urine Urobilinogen (<2.0) mg/dL Ur Leukocyte Esterase (Negative) Urine HCG, Qual (Not Detectd) Coronavirus (PCR) (Not Detected) Hepatitis A IgM Ab NEGATIVE Hep Bs Antigen Non-Reactive (Non-Reactive) Hep B Core IgM Ab Non-Reactive (Non-Reactive) Hep C IgG Ab Non-Reactive (Non-Reactive) Heterophile Antibody (Negative) Disposition Clinical Impression: Fever, Transaminitis Disposition: HOME SELF-CARE Condition: Good Is patient prescribed a controlled substance at d/c from ED?: No Referrals: Bibi Zarate III, MD [Primary Care Provider] - 1-2 days
[2020-04-02 07:03] LABS: Hepatitis A Antibody IgM NEGATIVE
[2020-04-03 11:19] LABS: Hepatitis B Core IgM Non-Reactive (Non-Reactive); Hepatitis B Surface Antigen Non-Reactive (Non-Reactive); Hepatitis C IgG Antibody Non-Reactive (Non-Reactive)
== END 2020-04-02 05:37 | disposition home or self-care (01) ==
LOC: EC 00:13
DX: R74.0 Nonspecific elevation of levels of transaminase and lactic acid dehydrogenase [LDH] (principal); R50.9 Fever, unspecified; R10.31 Right lower quadrant pain; R10.32 Left lower quadrant pain; M79.7 Fibromyalgia; M06.9 Rheumatoid arthritis, unspecified; Z79.1 Long term (current) use of non-steroidal anti-inflammatories (NSAID); Z20.828 Contact with and (suspected) exposure to other viral communicable diseases
CPT/HCPCS: 36415; 80053; 80074; 82150; 83690; 85025; 86140; 86308; 81003; 81025; 74177; 99284; 96374; 96375; 96361 ×2; U0003; J2270; J2405; Q9967

== ENCOUNTER 2020-04-03 16:17 | Inpatient (IN) | payer BC, OTHER ==
[2020-04-03] MEDS ORDERED: SODIUM CHLORIDE 0.9% 1,000 ML IV STA (17:30)
--- NOTE | 2020-04-03 17:54 | ED ---
General Adult HPI - General Chief complaint: Abdominal Pain Stated complaint: fever, abd pain Time Seen by Provider: 04/03/20 17:12 Source: patient, RN notes reviewed, old records reviewed Mode of arrival: ambulatory Limitations: no limitations - History of Present Illness Initial comments: 40-year-old female patient presents to ED for chief complaint of abdominal pain constipation fever. Patient reports the symptoms have been ongoing for the last 3 days. Patient reports that she has not had a bowel movement since Friday. Patient reports that the abdominal pain is from her umbilicus down. He reports that is just more of an achy pain now rather any focal area of discomfort. She also reports that she has been having waxing and waning fevers over this time. She was seen in this emergency department which she had a CAT scan of her abdomen pelvis which displayed constipation. Patient also transaminitis. Patient was seen by her primary care provider recommend she come back to the ER for repeat laboratory investigations, ultrasound of the gallbladder. Denies any other complaints at this time. Pt was previously tested for COVID and was negative, denies any upper respiratory symptoms. Systemic: Pt denies fatigue, rash. Pt denies weakness, night sweats, weight loss. Neuro: Pt denies headache, visual disturbances, syncope or pre-syncope. HEENT: Pt denies ocular discharge or irritation, otalgia, rhinorrhea, pharyngitis or notable lymphadenopathy. Cardiopulmonary: Pt denies chest pain, SOB, heart palpitations, dyspnea on exertion. Abdominal/GI: Pt denies n/v/d. : Pt denies dysuria, burning w/ urination, frequency/urgency. Denies new onset urinary or bowel incontinence. MSK: Pt denies myalgia, loss of strength or function in extremities. Neuro: Pt denies new onset weakness, paresthesias. - Related Data Home Medications Medication Instructions Recorded Confirmed DULoxetine HCL [Cymbalta] 120 mg PO HS 02/25/19 04/03/20 Acetaminophen Tab [Tylenol Tab] 1,000 mg PO Q6HR PRN 04/03/20 04/03/20 Meloxicam [Mobic] 15 mg PO HS 04/03/20 04/03/20 metFORMIN HCL [Glucophage] 500 mg PO BID 04/03/20 04/03/20 Allergies Allergy/AdvReac Type Severity Reaction Status Date / Time No Known Allergies Allergy Verified 04/03/20 20:29 Review of Systems ROS Statement: Those systems with pertinent positive or pertinent negative responses have been documented in the HPI. ROS Other: All systems not noted in ROS Statement are negative. Past Medical History Past Medical History: No Reported History, Rheumatoid Arthritis (RA) Additional Past Medical History / Comment(s): fibermyalgia History of Any Multi-Drug Resistant Organisms: None Reported Past Surgical History: Section Additional Past Surgical History / Comment(s): D&C Past Psychological History: No Psychological Hx Reported Smoking Status: Never smoker Past Alcohol Use History: None Reported Past Drug Use History: None Reported General Exam - General Exam Comments Initial Comments: Constitutional: NAD, AOX3, Pt has pleasant affect. HEENT: NC/AT, trachea midline, neck supple, no lymphadenopathy. Posterior pharynx non erythematous, without exudates. External ears appear normal, without discharge. Mucous membranes moist. Eyes PERRLA, EOM intact. There is no scleral icterus. No pallor noted. Cardiopulmonary: RRR, no murmurs, rubs or gallops, no JVD noted. Lungs CTAB in anterior and posterior worrell. No peripheral edema. Abdominal exam: Abdomen soft and non-distended. Abdomen generalized mildly tender to palpation in Local lower quadrants. No focal area.. Bowel sounds active in LLQ. No hepatosplenomegaly. No ecchymosis Neuro: CN II-XII intact. No nuchal rigidity. No raccon eyes, no dietrich sign, no hemotympanum. No cervical spinal tenderness. MSK: No posterior calf tenderness bilaterally, homans sign negative bilaterally. Posterior tibialis and radial pulse +2 bilaterally. Sensation intact in upper and lower extremities. Full active ROM in upper and lower extremities, 5/5 stregnth. Limitations: no limitations Course Vital Signs 04/03/20 04/03/20 16:40 19:15 Temperature 99.6 F 100.7 F H Pulse Rate 94 91 Respiratory 18 19 Rate Blood Pressure 125/90 134/80 O2 Sat by Pulse 99 99 Oximetry Medical Decision Making - Medical Decision Making 40-year-old female patient presents to ED for chief complaint of abdominal pain constipation fever. Patient reports the symptoms have been ongoing for the last 3 days. Patient reports that she has not had a bowel movement since Friday. Patient reports that the abdominal pain is from her umbilicus down. He reports that is just more of an achy pain now rather any focal area of discomfort. She also reports that she has been having waxing and waning fevers over this time. She was seen in this emergency department which she had a CAT scan of her abdomen pelvis which displayed constipation. Patient also transaminitis. Patient was seen by her primary care provider recommend she come back to the ER for repeat laboratory investigations, ultrasound of the gallbladder. Denies any other complaints at this time. Pt was previously tested for COVID and was negative, denies any upper respiratory symptoms. Patient vital signs initially afebrile. Patient did then develop a fever. Physical exam displayed generalized discomfort in the lower quadrants but no focal area of tenderness. Lymph investigations do reveal increasing of liver enzymes from 100 to the mid 200s today. GGT is elevated. Bilirubin is 0.1. UA is negative. Previous laboratory investigations from yesterday also displayed negative coronavirus negative hepatitis panel. CT abdomen and pelvis yesterday displayed retained fecal matter constipation and a large abdominal and back The terminal ileum. KUB today displayed no acute abnormality. Gallbladder ultrasound displayed possible hepatocellular disease or hepatic steatosis over the exam is limited. Gallbladder within normal limits. Transvaginal ultrasound displayed endometrium of 14 mm. Minimal fluid in the pelvis. Indeterminant subcutaneous endometrial cystic focus. Case was discussed with Dr. Duong for GI who reccomended ceftriaxone and flagyl and will evaluate tomorrow. Patient began to complain of a mild migraine headache which she says is identical to her other migraine headaches and not have any new or concerning features. Patient was administered Benadryl and analgesia. There is no nuchal rigidity. Neurologic exam is intact. Patient will be admitted to Dr. Ortez. Case discussed with Dr. Jang. - Lab Data Result diagrams: 04/03/20 17:45 04/03/20 17:45 Lab Results 04/03/20 04/03/20 04/03/20 Range/Units 17:45 17:45 17:45 WBC 4.8 (3.8-10.6) k/uL RBC 4.38 (3.80-5.40) m/uL Hgb 12.1 (11.4-16.0) gm/dL Hct 37.7 (34.0-46.0) % MCV 86.0 (80.0-100.0) fL MCH 27.5 (25.0-35.0) pg MCHC 32.0 (31.0-37.0) g/dL RDW 14.2 (11.5-15.5) % Plt Count 208 (150-450) k/uL Neutrophils % (Manual) 47 % Band Neutrophils % 7 % Lymphocytes % (Manual) 36 % Monocytes % (Manual) 7 % Eosinophils % (Manual) 1 % Basophils % (Manual) 2 % Neutrophils # (Manual) 2.50 (1.3-7.7) k/uL Lymphocytes # (Manual) 1.73 (1.0-4.8) k/uL Monocytes # (Manual) 0.34 (0-1.0) k/uL Eosinophils # (Manual) 0.05 (0-0.7) k/uL Basophils # (Manual) 0.10 (0-0.2) k/uL Nucleated RBCs 0 (0-0) /100 WBC Manual Slide Review Performed Reactive Lymphocytes Present Sodium 134 L (137-145) mmol/L Potassium 4.7 (3.5-5.1) mmol/L Chloride 104 (98-107) mmol/L Carbon Dioxide 26 (22-30) mmol/L Anion Gap 4 mmol/L BUN 5 L (7-17) mg/dL Creatinine 0.58 (0.52-1.04) mg/dL Est GFR (CKD-EPI)AfAm >90 (>60 ml/min/1.73 sqM) Est GFR (CKD-EPI)NonAf >90 (>60 ml/min/1.73 sqM) Glucose 97 (74-99) mg/dL Plasma Lactic Acid Tony 0.9 (0.7-2.0) mmol/L Calcium 8.7 (8.4-10.2) mg/dL Total Bilirubin 0.1 L (0.2-1.3) mg/dL GGT (12-43) U/L AST 233 H (14-36) U/L ALT 242 H (4-34) U/L Alkaline Phosphatase 119 (38-126) U/L Total Protein 6.2 L (6.3-8.2) g/dL Albumin 3.6 (3.5-5.0) g/dL Lipase 133 (23-300) U/L Urine Color Urine Appearance (Clear) Urine pH (5.0-8.0) Ur Specific [place] (1.001-1.035) Urine Protein (Negative) Urine Glucose (UA) (Negative) Urine Ketones (Negative) Urine Blood (Negative) Urine Nitrite (Negative) Urine Bilirubin (Negative) Urine Urobilinogen (<2.0) mg/dL Ur Leukocyte Esterase (Negative) Urine HCG, Qual (Not Detectd) Urine Opiates Screen (NotDetected) Ur Oxycodone Screen (NotDetected) Urine Methadone Screen (NotDetected) Ur Propoxyphene Screen (NotDetected) Acetaminophen ug/mL Ur Barbiturates Screen (NotDetected) U Tricyclic Antidepress (NotDetected) Ur Phencyclidine Scrn (NotDetected) Ur Amphetamines Screen (NotDetected) U Methamphetamines Scrn (NotDetected) U Benzodiazepines Scrn (NotDetected) Urine Cocaine Screen (NotDetected) U Marijuana (THC) Screen (NotDetected) Heterophile Antibody (Negative) 04/03/20 04/03/20 04/03/20 Range/Units 17:45 17:45 17:45 WBC (3.8-10.6) k/uL RBC (3.80-5.40) m/uL Hgb (11.4-16.0) gm/dL Hct (34.0-46.0) % MCV (80.0-100.0) fL MCH (25.0-35.0) pg MCHC (31.0-37.0) g/dL RDW (11.5-15.5) % Plt Count (150-450) k/uL Neutrophils % (Manual) % Band Neutrophils % % Lymphocytes % (Manual) % Monocytes % (Manual) % Eosinophils % (Manual) % Basophils % (Manual) % Neutrophils # (Manual) (1.3-7.7) k/uL Lymphocytes # (Manual) (1.0-4.8) k/uL Monocytes # (Manual) (0-1.0) k/uL Eosinophils # (Manual) (0-0.7) k/uL Basophils # (Manual) (0-0.2) k/uL Nucleated RBCs (0-0) /100 WBC Manual Slide Review Reactive Lymphocytes Sodium (137-145) mmol/L Potassium (3.5-5.1) mmol/L Chloride (98-107) mmol/L Carbon Dioxide (22-30) mmol/L Anion Gap mmol/L BUN (7-17) mg/dL Creatinine (0.52-1.04) mg/dL Est GFR (CKD-EPI)AfAm (>60 ml/min/1.73 sqM) Est GFR (CKD-EPI)NonAf (>60 ml/min/1.73 sqM) Glucose (74-99) mg/dL Plasma Lactic Acid Tony (0.7-2.0) mmol/L Calcium (8.4-10.2) mg/dL Total Bilirubin (0.2-1.3) mg/dL GGT 102 H (12-43) U/L AST (14-36) U/L ALT (4-34) U/L Alkaline Phosphatase (38-126) U/L Total Protein (6.3-8.2) g/dL Albumin (3.5-5.0) g/dL Lipase (23-300) U/L Urine Color Urine Appearance (Clear) Urine pH (5.0-8.0) Ur Specific [place] (1.001-1.035) Urine Protein (Negative) Urine Glucose (UA) (Negative) Urine Ketones (Negative) Urine Blood (Negative) Urine Nitrite (Negative) Urine Bilirubin (Negative) Urine Urobilinogen (<2.0) mg/dL Ur Leukocyte Esterase (Negative) Urine HCG, Qual (Not Detectd) Urine Opiates Screen (NotDetected) Ur Oxycodone Screen (NotDetected) Urine Methadone Screen (NotDetected) Ur Propoxyphene Screen (NotDetected) Acetaminophen <10.0 ug/mL Ur Barbiturates Screen (NotDetected) U Tricyclic Antidepress (NotDetected) Ur Phencyclidine Scrn (NotDetected) Ur Amphetamines Screen (NotDetected) U Methamphetamines Scrn (NotDetected) U Benzodiazepines Scrn (NotDetected) Urine Cocaine Screen (NotDetected) U Marijuana (THC) Screen (NotDetected) Heterophile Antibody Negative (Negative) 04/03/20 04/03/20 04/03/20 Range/Units 19:00 19:00 19:00 WBC (3.8-10.6) k/uL RBC (3.80-5.40) m/uL Hgb (11.4-16.0) gm/dL Hct (34.0-46.0) % MCV (80.0-100.0) fL MCH (25.0-35.0) pg MCHC (31.0-37.0) g/dL RDW (11.5-15.5) % Plt Count (150-450) k/uL Neutrophils % (Manual) % Band Neutrophils % % Lymphocytes % (Manual) % Monocytes % (Manual) % Eosinophils % (Manual) % Basophils % (Manual) % Neutrophils # (Manual) (1.3-7.7) k/uL Lymphocytes # (Manual) (1.0-4.8) k/uL Monocytes # (Manual) (0-1.0) k/uL Eosinophils # (Manual) (0-0.7) k/uL Basophils # (Manual) (0-0.2) k/uL Nucleated RBCs (0-0) /100 WBC Manual Slide Review Reactive Lymphocytes Sodium (137-145) mmol/L Potassium (3.5-5.1) mmol/L Chloride (98-107) mmol/L Carbon Dioxide (22-30) mmol/L Anion Gap mmol/L BUN (7-17) mg/dL Creatinine (0.52-1.04) mg/dL Est GFR (CKD-EPI)AfAm (>60 ml/min/1.73 sqM) Est GFR (CKD-EPI)NonAf (>60 ml/min/1.73 sqM) Glucose (74-99) mg/dL Plasma Lactic Acid Tony (0.7-2.0) mmol/L Calcium (8.4-10.2) mg/dL Total Bilirubin (0.2-1.3) mg/dL GGT (12-43) U/L AST (14-36) U/L ALT (4-34) U/L Alkaline Phosphatase (38-126) U/L Total Protein (6.3-8.2) g/dL Albumin (3.5-5.0) g/dL Lipase (23-300) U/L Urine Color Light Yellow Urine Appearance Clear (Clear) Urine pH 7.5 (5.0-8.0) Ur Specific [place] 1.005 (1.001-1.035) Urine Protein Negative (Negative) Urine Glucose (UA) Negative (Negative) Urine Ketones Negative (Negative) Urine Blood Negative (Negative) Urine Nitrite Negative (Negative) Urine Bilirubin Negative (Negative) Urine Urobilinogen <2.0 (<2.0) mg/dL Ur Leukocyte Esterase Negative (Negative) Urine HCG, Qual Not Detected (Not Detectd) Urine Opiates Screen Detected H (NotDetected) Ur Oxycodone Screen Not Detected (NotDetected) Urine Methadone Screen Not Detected (NotDetected) Ur Propoxyphene Screen Not Detected (NotDetected) Acetaminophen ug/mL Ur Barbiturates Screen Not Detected (NotDetected) U Tricyclic Antidepress Not Detected (NotDetected) Ur Phencyclidine Scrn Not Detected (NotDetected) Ur Amphetamines Screen Not Detected (NotDetected) U Methamphetamines Scrn Not Detected (NotDetected) U Benzodiazepines Scrn Not Detected (NotDetected) Urine Cocaine Screen Not Detected (NotDetected) U Marijuana (THC) Screen Not Detected (NotDetected) Heterophile Antibody (Negative) Disposition Clinical Impression: Transaminitis, Fever, Abdominal pain Disposition: ADMITTED IP TO THIS [facility] Condition: Serious Is patient prescribed a controlled substance at d/c from ED?: No Referrals: Bibi Zarate III, MD [Primary Care Provider] - 1-2 days
--- NOTE | 2020-04-03 18:11 | XR ---
KUB HISTORY: Abdomen pain, constipation and fever Frontal KUB and 2 images Correlation prior exam 12/07/[address] 04/02/2020 There is no evident pneumoperitoneum or bowel obstruction. Bone mineralization is stable. Bases are s table. There is no pathologic calcification, probable phleboliths present within the pelvis.. IMPRESSION: No acute abnormality
[2020-04-03] MEDS ORDERED: MORPHINE SULFATE 4 MG/ML SYRINGE IV STA (18:12)
[2020-04-03 18:31] LABS: HCT 37.7 % (34.0-46.0); HGB 12.1 gm/dL (11.4-16.0); MCH 27.5 pg (25.0-35.0); Platelet Count 208 k/uL (150-450); RBC 4.38 m/uL (3.80-5.40); RDW 14.2 % (11.5-15.5); WBC 4.8 k/uL (3.8-10.6)
[2020-04-03 18:32] LABS: ALT 242 U/L (4-34); AST 233 U/L (14-36); African American GFR (CKD) >90 (>60 ml/min/1.73 sqM); Albumin 3.6 g/dL (3.5-5.0); Alkaline Phosphatase 119 U/L (38-126); Anion Gap 4 mmol/L; Blood Urea Nitrogen 5 mg/dL (7-17); Calcium 8.7 mg/dL (8.4-10.2); Carbon Dioxide 26 mmol/L (22-30); Chloride 104 mmol/L (98-107); Glucose 97 mg/dL (74-99); Non-African American GFR(CKD) >90 (>60 ml/min/1.73 sqM); Potassium 4.7 mmol/L (3.5-5.1); Sodium 134 mmol/L (137-145); Total Bilirubin 0.1 mg/dL (0.2-1.3); Total Protein 6.2 g/dL (6.3-8.2)
[2020-04-03 18:54] LABS: Band Neutrophils % 7 %; Eosinophils # (M) 0.05 k/uL (0-0.7); Lymphocytes # (M) 1.73 k/uL (1.0-4.8); Monocytes # (M) 0.34 k/uL (0-1.0); Neutrophils % (M) 47 %; Nucleated Red Blood Cells 0 /100 WBC (0-0); Total Cells Counted 100
[2020-04-03 18:55] LABS: Reactive Lymphocytes Present
[2020-04-03] MEDS ORDERED: IBUPROFEN 600 MG TAB PO STA (19:06)
--- NOTE | 2020-04-03 19:10 | US ---
EXAMINATION TYPE: US gallbladder DATE OF EXAM: 04/03/2020 COMPARISON: Ultrasound 04/02/2020 CLINICAL HISTORY: abdominal pain, transaminitis, fever. Abdominal pain x 5 days. Transaminitis, fever . Hx of kidney stone. EXAM MEASUREMENTS: Liver Length: 14.9 cm Gallbladder Wall: 0.26 cm CBD: 0.20 cm Right Kidney: 11.0 x 5.2 x 5.6 cm *Limited due to gas. Pancreas: Slightly limited. Portions seen appear wnl. Liver: Echotexture the liver is heterogeneous. Gallbladder: Appears to be wnl. Measures 7.16 cm. Evidence for sonographic Crabtree's sign: No CBD: Appears to be wnl. Right Kidney: No hydronephrosis or masses seen. Lower pole slightly obscured by bowel gas. IMPRESSION: There may be underlying hepatocellular disease or hepatic steatosis, exam is limited.
--- NOTE | 2020-04-03 19:18 | US ---
EXAMINATION TYPE: US transvaginal DATE OF EXAM: 04/03/2020 COMPARISON: CT CLINICAL HISTORY: lower abdominal pain . Lower abdominal pain x 5 days. Hx D and C, . . TECHNIQUE: Transvaginal (TV). Date of LMP: 03/08/2020 EXAM MEASUREMENTS: Uterus: 7.6 x 5.7 x 4.8 cm Endometrial Stripe: 1.4 cm Right Ovary: 4.4 x 3.1 x 2.7 cm Left Ovary: 3.5 x 1.6 x 1.8 cm 1. Uterus: Retroverted Anechoic area seen anterior to endometrium measurin.3 x 0.3 x 0.4 cm. Flu id seen superior to uterus: 1.5 x 1.5 x 0.3 cm. 2. Endometrium: Measures 1.4 cm. 3. Right Ovary: Hyperechoic area seen: 2.0 x 1.6 x 1.5 cm. Hypoechoic/heterogeneous area seen: 1.5 x 1.3 x 1.2 cm. 4. Left Ovary: Follicles seen. Spectral, color and waveform doppler imaging shows arterial and venous flow within the ovaries. 5. Bilateral Adnexa: Fluid seen in bilateral adnexa. 6. Posterior cul-de-sac: Fluid seen IMPRESSION: Endometrium is 14 mm, correlate for appropriate phase of patient's follicular cycle. Mini mal fluid present in the pelvis. Indeterminate subcutaneous endometrial cystic focus, follow-up recom mended
[2020-04-03 19:28] LABS: Appearance,Urine Clear (Clear); Bilirubin,Urine Negative (Negative); Blood,Urine Negative (Negative); Color,Urine Light Yellow; Glucose,Urine (UA) Negative (Negative); Ketones,Urine Negative (Negative); Leukocyte Esterase,Urine Negative (Negative); Nitrite,Urine Negative (Negative); PH, Urine 7.5 (5.0-8.0); Protein,Urine Negative (Negative); Specific Gravity,Urine 1.005 (1.001-1.035); Urobilinogen,Urine <2.0 mg/dL (<2.0)
[2020-04-03 19:42] LABS: Amphetamine Screen,Urine Not Detected (NotDetected); Barbiturate Screen,Urine Not Detected (NotDetected); Benzodiazepines Screen,Urine Not Detected (NotDetected); Cocaine Screen,Urine Not Detected (NotDetected); Methadone Screen, Urine Not Detected (NotDetected); Opiate Screen,Urine Detected (NotDetected); Oxycodone Screen, Urine Not Detected (NotDetected); Phencyclidine Screen,Urine Not Detected (NotDetected); Tricyclic Antidepressant,Urine Not Detected (NotDetected); Urn Cannabinoid Scrn Not Detected (NotDetected)
[2020-04-03] MEDS ORDERED: cefTRIAXone IN SWFI 1,000 MG/10 ML SYRINGE IVP STA (20:07)
[2020-04-03] MEDS ORDERED: metroNIDAZOLE-NS PMX 500 MG in SALINE 1 100ML.BAG IVPB STA (20:07)
[2020-04-03] MEDS ORDERED: ONDANSETRON 4 MG/2 ML VIAL IVP STA (20:08)
[2020-04-03] MEDS ORDERED: diphenhydrAMINE 50 MG/ML 1 ML VIAL IVP STA (20:27)
[2020-04-03] MEDS ORDERED: GLYCERIN ADULT SUPPOSITORY 1 EACH RECTAL STA (20:37)
[2020-04-03] MEDS ORDERED: ACETAMINOPHEN TAB 325 MG TAB PO PRN (20:41)
[2020-04-03] MEDS ORDERED: ONDANSETRON 4 MG/2 ML VIAL IVP PRN (20:41)
[2020-04-03] MEDS ORDERED: NALOXONE 0.4 MG/ML 1 ML VIAL IV PRN (20:41)
[2020-04-03] MEDS ORDERED: IBUPROFEN 400 MG TAB PO PRN (20:41)
[2020-04-03] MEDS ORDERED: MORPHINE SULFATE 4 MG/ML SYRINGE IVP PRN (21:11)
[2020-04-03] MEDS: SODIUM CHLORIDE 0.9% 1,000 ML IV SCH (21:18)
[2020-04-03] MEDS: KETOROLAC 30 MG/ML 1 ML VIAL IVP SCH (21:29)
[2020-04-03] MEDS ORDERED: ACETAMINOPHEN TAB 500 MG TAB PO PRN (21:42)
[2020-04-04] MEDS ORDERED: DULoxetine HCL 60 MG CAPSULE.DR PO ONE (00:23)
[2020-04-04 04:21] LABS: EBV-EA (IgG) <0.2 AI; EBV-EBNA(IgG) >8.0 AI; EBV-VCA (IgG) >8.0 AI; EBV-VCA (IgM) 0.2 AI
[2020-04-04] MEDS: KETOROLAC 30 MG/ML 1 ML VIAL IVP SCH ×3 (04:29→20:18)
[2020-04-04] MEDS: metroNIDAZOLE-NS PMX 500 MG in SALINE 1 100ML.BAG IVPB SCH ×2 (04:36→20:20)
[2020-04-04] MEDS ORDERED: KETOROLAC 30 MG/ML 1 ML VIAL IVP ONE (06:19)
[2020-04-04] MEDS: SODIUM CHLORIDE 0.9% 1,000 ML IV SCH ×2 (10:34→21:58)
[2020-04-04] MEDS ORDERED: LACTULOSE 20 GM/30 ML CUP PO PRN (13:04)
[2020-04-04 13:10] LABS: ALT 208 U/L (4-34); AST 139 U/L (14-36); African American GFR (CKD) >90 (>60 ml/min/1.73 sqM); Albumin 3.2 g/dL (3.5-5.0); Alkaline Phosphatase 125 U/L (38-126); Anion Gap 4 mmol/L; Blood Urea Nitrogen 4 mg/dL (7-17); Calcium 7.8 mg/dL (8.4-10.2); Carbon Dioxide 25 mmol/L (22-30); Chloride 107 mmol/L (98-107); Glucose 93 mg/dL (74-99); Non-African American GFR(CKD) >90 (>60 ml/min/1.73 sqM); Potassium 3.7 mmol/L (3.5-5.1); Sodium 136 mmol/L (137-145); Total Bilirubin 0.1 mg/dL (0.2-1.3); Total Protein 5.8 g/dL (6.3-8.2)
[2020-04-04] MEDS ORDERED: PEG 3350-NA SULF,BICARB,CL/KCL 4,000 ML BOTTLE PO ONE (13:14)
[2020-04-04 13:17] LABS: HCT 35.2 % (34.0-46.0); HGB 11.5 gm/dL (11.4-16.0); MCH 28.3 pg (25.0-35.0); MCHC 32.5 g/dL (31.0-37.0); Platelet Count 196 k/uL (150-450); RBC 4.05 m/uL (3.80-5.40); RDW 14.4 % (11.5-15.5); WBC 4.7 k/uL (3.8-10.6)
--- NOTE | 2020-04-04 13:44 | P.HPIM ---
History of Present Illness patient is a pleasant 40-year-old female came in with compensative fever and body aches has been going on for last 3-4 days patient was seen in ER was subsequently discharged home patient was tested for Covid19 which was [address] CT of the abdomen at that time did not show any significant abnormality except for constipation and significant amount of stool in the colon. Patient patient did take multiple medications for constipation with only 1 bowel movement. Patient can you to have fever and patient started having transaminitis because of which patient was sent to ER again. Patient the AST and ALT are bit worse than yesterday patient the liver enzymes has gone up from 100s to 200s because of which there was a concern of hepatitis and subsequently admitted to the hospital. Patient was tested for EBV IgM antibody is negative. Patient hepatitis panel is within normal notes ultrasound of the gallbladder did not show any significant abnormality even when questioned about abdominal pain patient was having abdominal pain when she started having fever which is lower abdominal pain which completely resolved at this time. Patient didn't have any fever but patient was empirically started on ceftriaxone and metronidazole for possible colitis although there is no evidence of that on the CAT scan because of which I'm stopping the antibiotic all also hold off on nonsteroidal anti- inflammatory recent Tylenol to make sure patient fever is not suppressed patient will be monitored for overnight with we will repeat liver enzymes today and tomorrow and they're coming down patient will be discharged tomorrow patient pr obably has some acute viral illness patient he is essentially within normal limits patient doesn't have any elevated lipase patient doesn't have any signs or symptoms of meningitis had minimal headache but no photophobia no local rigidity or neck rigidity patient looks well doesn't look appear to be toxic at this time.patient was having myalgias generalized body aches when she had fever Review of Systems REVIEW OF SYSTEMS: CONSTITUTIONAL: as mentioned in HPI HEENT: No recent visual problems or hearing problems. Denied any sore throat. CARDIOVASCULAR: No chest pain, orthopnea, PND, no palpitations, no syncope. PULMONARY: No shortness of breath, no cough, no hemoptysis. GASTROINTESTINAL: No diarrhea, no nausea, no vomiting, no abdominal pain. NEUROLOGICAL: No headaches, no weakness, no numbness. HEMATOLOGICAL: Denies any bleeding or petechiae. GENITOURINARY: Denies any burning micturition, frequency, or urgency. MUSCULOSKELETAL/RHEUMATOLOGICAL: Denies any joint pain, swelling, or any muscle pain. ENDOCRINE: Denies any polyuria or polydipsia. The rest of the 14-point review of systems is negative. Past Medical History Past Medical History: No Reported History, Rheumatoid Arthritis (RA) Additional Past Medical History / Comment(s): fibermyalgia, [place] at 15yr old History of Any Multi-Drug Resistant Organisms: None Reported Past Surgical History: Section Additional Past Surgical History / Comment(s): D&C Past Anesthesia/Blood Transfusion Reactions: No Reported Reaction Past Psychological History: No Psychological Hx Reported Smoking Status: Never smoker Past Alcohol Use History: None Reported Past Drug Use History: None Reported - Past Family History Mother Family Medical History: Hypertension Medications and Allergies Home Medications Medication Instructions Recorded Confirmed Type DULoxetine HCL [Cymbalta] 120 mg PO HS 02/25/19 04/03/20 History Acetaminophen Tab [Tylenol Tab] 1,000 mg PO Q6HR PRN 04/03/20 04/03/20 History Meloxicam [Mobic] 15 mg PO HS 04/03/20 04/03/20 History metFORMIN HCL [Glucophage] 500 mg PO BID 04/03/20 04/03/20 History Allergies Allergy/AdvReac Type Severity Reaction Status Date / Time No Known Allergies Allergy Verified 04/03/20 20:29 Physical Exam Vitals: Vital Signs Temp Pulse Pulse Resp BP BP Pulse Ox 04/04/20 09:17 98.5 F 82 18 142/83 100 04/04/20 06:20 99 F 83 18 114/62 96 04/03/20 23:00 99.2 F 85 16 132/85 100 04/03/20 22:00 78 18 04/03/20 21:30 101.1 F H 78 18 128/75 98 04/03/20 19:15 100.7 F H 91 19 134/80 99 04/03/20 16:40 99.6 F 94 18 125/90 99 Intake and Output 04/03/20 04/04/20 04/04/20 22:59 06:59 14:59 Other: Voiding Method Toilet # Voids 1 2 Weight 74.2 kg PHYSICAL EXAMINATION: GENERAL: The patient is alert and oriented x3, not in any acute distress. Well developed, well nourished. HEENT: Pupils are round and equally reacting to light. EOMI. No scleral icterus. No conjunctival pallor. Normocephalic, atraumatic. No pharyngeal erythema. No thyromegaly. CARDIOVASCULAR: S1 and S2 present. No murmurs, rubs, or gallops. PULMONARY: Chest is clear to auscultation, no wheezing or crackles. ABDOMEN: Soft, nontender, nondistended, normoactive bowel sounds. No palpable organomegaly. MUSCULOSKELETAL: No joint swelling or deformity. EXTREMITIES: No cyanosis, clubbing, or pedal edema. NEUROLOGICAL: Gross neurological examination did not reveal any focal deficits. SKIN: No rashes. Results CBC & Chem 7: 04/04/20 12:26 04/04/20 12:26 Labs: Abnormal Lab Results - Last 24 Hours (Table) 04/03/20 04/03/20 04/03/20 Range/Units 17:45 17:45 17:45 Sodium 134 L (137-145) mmol/L BUN 5 L (7-17) mg/dL Calcium (8.4-10.2) mg/dL Total Bilirubin 0.1 L (0.2-1.3) mg/dL GGT 102 H (12-43) U/L AST 233 H (14-36) U/L ALT 242 H (4-34) U/L Total Protein 6.2 L (6.3-8.2) g/dL Albumin (3.5-5.0) g/dL Urine Opiates Screen (NotDetected) EBV Capsid Ag IgG Intrp POSITIVE H (NEGATIVE) EBV Nuc Ag IgG Interp POSITIVE H (NEGATIVE) 04/03/20 04/04/20 Range/Units 19:00 12:26 Sodium 136 L (137-145) mmol/L BUN 4 L (7-17) mg/dL Calcium 7.8 L (8.4-10.2) mg/dL Total Bilirubin 0.1 L (0.2-1.3) mg/dL GGT (12-43) U/L AST 139 H (14-36) U/L ALT 208 H (4-34) U/L Total Protein 5.8 L (6.3-8.2) g/dL Albumin 3.2 L (3.5-5.0) g/dL Urine Opiates Screen Detected H (NotDetected) EBV Capsid Ag IgG Intrp (NEGATIVE) EBV Nuc Ag IgG Interp (NEGATIVE) Thrombosis Risk Factor Assmnt - Choose All That Apply Each Factor Represents 1 point: Obesity (BMI >25) Thrombosis Risk Factor Assessment Total Risk Factor Score: 1 Thrombosis Risk Factor Assessment Level: Low Risk Assessment and Plan Plan: -fever with elevated liver enzymes probably due to acute viral illness with ruled out hepatitis, diverticulitis.gastroenterology is evaluating the patient.ultrasound of the abdomen did not show any significant abnormality Constipation will use lactulose for constipation if that doesn't help patient need enema -depression for which patient usesduloxetine which will be continued -possible nonalcoholic steatohepatitis. -Mild hypovolemic hyponatremia improved with IV fluids. -DVT prophylaxis early ambulation
[2020-04-04 14:35] LABS: Eosinophils # (M) 0.09 k/uL (0-0.7); Monocytes # (M) 0.71 k/uL (0-1.0); Neutrophils % (M) 49 %; Nucleated Red Blood Cells 0 /100 WBC (0-0); Total Cells Counted 100
[2020-04-04 14:36] LABS: Anisocytosis (M) Present
[2020-04-04] MEDS: KETOROLAC 30 MG/ML 1 ML VIAL IVP PRN (18:26)
[2020-04-04 19:30] LABS: % Iron Saturation 9.4 (12.00-45.00)
[2020-04-04 19:32] LABS: Alpha Fetoprotein, Tumor Mkr <2.5 ng/mL (0.0-7.9)
[2020-04-04 19:34] LABS: Ferritin 23.9 ng/mL (10.0-291.0)
[2020-04-04 19:47] LABS: Protein, Total 5.3 g/dL (6.2-8.2)
[2020-04-04 19:56] LABS: Hepatitis A Antibody IgM Non-Reactive (Non-Reactive); Hepatitis B Core IgM Non-Reactive (Non-Reactive); Hepatitis B Surface Antigen Non-Reactive (Non-Reactive); Hepatitis C IgG Antibody Non-Reactive (Non-Reactive)
--- NOTE | 2020-04-04 21:54 | P.CONS ---
History of Present Illness - Reason for Consult Consult date: 04/04/20 Elevated liver enzymes Requesting physician: Letty Mckoy - Chief Complaint Abdominal pain, fevers - History of Present Illness 32-year-old female with a medical history significant for rheumatoid arthritis and fibromyalgia who presented to the hospital with a constellation of symptoms including fevers, body aches and abdominal pain. She reports that the symptoms have been present for approximately 3-4 days. She was seen on the ER initially with negative CT of the abdomen except for evidence of constipation. She presented back to the ER and was noted to have liver enzymes which had elevated from the previous presentation with a total bilirubin 0.1, alkaline phosphatase 125, AST 139 and ALT 208. She denies any prior history of liver disease. No heavy alcohol use. She had ultrasound performed in evaluation which showed possible steatosis of the liver. Liver enzymes to trend down today. Abdominal pain is also somewhat improved. Viral hepatitis testing has been negative as well as other testing for underlying viral illness. Patient reports that constipation has been worsening over the past month or so. Currently having bowel movements every few days. She reports no improvement with [id number] laxative use. No prior EGD or colonoscopy reported. No new medications or antibiotics therapy prior to presentation. Review of Systems REVIEW OF SYSTEMS: CONSTITUTIONAL: Denies any weight change but does report fatigue, fevers and myalgias. CARDIOVASCULAR: Denies any chest pain, palpitations high or low blood pressures RESPIRATORY: Denies any shortness of breath, hemoptysis or cough. GENITOURINARY: No dysuria or hematuria. MUSCULOSKELETAL: No weakness reported, does have problems with soreness in her hips. SKIN: Denies any new rashes or lesions, jaundice or pallor. PSYCHIATRIC: Denies any depression or anxiety. NEUROLOGY: Denies headache, denies any new focal deficits. EARS/NOSE/THROAT: No recent hearing change, congestion, nasal discharge or sore throat. EYES: No pain in eyes, discharge or change in vision. GASTROINTESTINAL: As per HPI. Past Medical History Past Medical History: No Reported History, Rheumatoid Arthritis (RA) Additional Past Medical History / Comment(s): fibermyalgia, [place] at 15yr old History of Any Multi-Drug Resistant Organisms: None Reported Past Surgical History: Section Additional Past Surgical History / Comment(s): D&C Past Anesthesia/Blood Transfusion Reactions: No Reported Reaction Past Psychological History: No Psychological Hx Reported Smoking Status: Never smoker Past Alcohol Use History: None Reported Past Drug Use History: None Reported - Past Family History Mother Family Medical History: Hypertension Medications and Allergies Home Medications Medication Instructions Recorded Confirmed Type DULoxetine HCL [Cymbalta] 120 mg PO HS 02/25/19 04/03/20 History Acetaminophen Tab [Tylenol Tab] 1,000 mg PO Q6HR PRN 04/03/20 04/03/20 History Meloxicam [Mobic] 15 mg PO HS 04/03/20 04/03/20 History metFORMIN HCL [Glucophage] 500 mg PO BID 04/03/20 04/03/20 History Allergies Allergy/AdvReac Type Severity Reaction Status Date / Time No Known Allergies Allergy Verified 04/03/20 20:29 Physical Exam Vitals: Vital Signs Temp Pulse Pulse Resp BP BP Pulse Ox 04/04/20 09:17 98.5 F 82 18 142/83 100 04/04/20 06: 99 F 83 18 114/62 96 04/03/20 23:00 99.2 F 85 16 132/85 100 04/03/20 22:00 78 18 04/03/20 21:30 101.1 F H 78 18 128/75 98 04/03/20 19:15 100.7 F H 91 19 134/80 99 04/03/20 16:40 99.6 F 94 18 125/90 99 Intake and Output 04/03/20 04/04/20 04/04/20 22:59 06:59 14:59 Other: Voiding Method Toilet # Voids 1 2 Weight 74.2 kg On physical examination, patient appears comfortable in no apparent distress. HEAD: Normocephalic, atraumatic. EYES: No scleral icterus. No conjunctival injection. MOUTH: No lesions, tongue midline. NECK: Trachea midline, no gross abnormalities. CHEST: Clear to auscultation with no wheezing or rhonchi appreciated. HEART: Regular rate and rhythm. ABDOMEN: Soft, obese. Bowel sounds are positive. No organomegaly. No guarding or rigidity. EXTREMITIES: No pedal edema. SKIN: No rashes, no jaundice. NEUROLOGIC: Alert and oriented x3. No focal deficits. Results CBC & Chem 7: 04/04/20 12:26 04/04/20 12:26 Labs: Abnormal Lab Results - Last 24 Hours (Table) 04/03/20 04/03/20 04/03/20 Range/Units 17:45 17:45 17:45 Sodium 134 L (137-145) mmol/L BUN 5 L (7-17) mg/dL Total Bilirubin 0.1 L (0.2-1.3) mg/dL GGT 102 H (12-43) U/L AST 233 H (14-36) U/L ALT 242 H (4-34) U/L Total Protein 6.2 L (6.3-8.2) g/dL Urine Opiates Screen (NotDetected) EBV Capsid Ag IgG Intrp POSITIVE H (NEGATIVE) EBV Nuc Ag IgG Interp POSITIVE H (NEGATIVE) 04/03/20 Range/Units 19:00 Sodium (137-145) mmol/L BUN (7-17) mg/dL Total Bilirubin (0.2-1.3) mg/dL GGT (12-43) U/L AST (14-36) U/L ALT (4-34) U/L Total Protein (6.3-8.2) g/dL Urine Opiates Screen Detected H (NotDetected) EBV Capsid Ag IgG Intrp (NEGATIVE) EBV Nuc Ag IgG Interp (NEGATIVE) US - abdomen: report reviewed (Ultrasound of the abdomen suggestive of fatty infiltration of liver) Assessment and Plan (1) Transaminitis Narrative/Plan: 32-year-old who presented with a constellation of symptoms including fevers, myalgias, constipation and was found to have elevation in her liver enzymes with total bilirubin 0.1, alkaline phosphatase 125, AST 139 and ALT 208. Prior history of elevated liver enzymes. Ultrasound of the abdomen suggestive of fa tty liver. No other abnormality seen on computed tomography scan however patient did have significant fecal retention. She has been suffering from increased constipation over the past month or so. No prior endoscopic evaluation. She denies any new medications or recent antibiotic use. Unclear e tiology of elevated liver enzymes with suspicion for viral hepatitis in the setting of associated fevers and myalgias. Acute viral hepatitis panel testing negative. Other liver serologies ordered and pending. Current Visit: Yes Status: Acute Code(s): R74.0 - NONSPEC ELEV OF LEVELS OF TRANSAMNS & LACTIC ACID DEHYDRGNSE SNOMED Code(s): 916569100 (2) Abdominal pain Narrative/Plan: Multifactorial given fibromyalgia and rheumatoid arthritis with likely component of constipation with significant stool burden on CT abdomen. Current Visit: Yes Status: Acute Code(s): R10.9 - UNSPECIFIED ABDOMINAL PAIN SNOMED Code(s): 24096938 Plan: Supportive care Okay for liquid diets and to advance if patient has bowel movements GoLYTELY bowel prep ordered with patient instructed to take the medication until she has 3-4 bowel movements Continue to monitor CBC, BMP, LFTs Liver serology ordered No plans for endoscopic evaluation at this time, patient encouraged to follow-up in the outpatient setting if constipation persists Thank you for allowing us to participate in the care of the patient
[2020-04-04] MEDS: DULoxetine HCL 60 MG CAPSULE.DR PO SCH (21:57)
[2020-04-05] MEDS: KETOROLAC 30 MG/ML 1 ML VIAL IVP PRN (00:49)
[2020-04-05 06:22] LABS: INR 0.9 (<1.2); Prothrombin Time 9.7 sec (9.0-12.0)
[2020-04-05 06:23] LABS: ALT 326 U/L (4-34); AST 306 U/L (14-36); African American GFR (CKD) >90 (>60 ml/min/1.73 sqM); Albumin 3.3 g/dL (3.5-5.0); Alkaline Phosphatase 185 U/L (38-126); Anion Gap 5 mmol/L; Blood Urea Nitrogen 2 mg/dL (7-17); Calcium 8.1 mg/dL (8.4-10.2); Carbon Dioxide 26 mmol/L (22-30); Chloride 106 mmol/L (98-107); Glucose 98 mg/dL (74-99); Non-African American GFR(CKD) >90 (>60 ml/min/1.73 sqM); Potassium 4.1 mmol/L (3.5-5.1); Sodium 137 mmol/L (137-145); Total Bilirubin 0.2 mg/dL (0.2-1.3); Total Protein 5.7 g/dL (6.3-8.2)
[2020-04-05] MEDS: SODIUM CHLORIDE 0.9% 1,000 ML IV SCH ×3 (09:03→17:06)
--- NOTE | 2020-04-05 12:06 | P.PN ---
Subjective Progress Note Date: 04/05/20 Principal diagnosis: patient is a pleasant 40-year-old female came in with compensative fever and body aches has been going on for last 3-4 days patient was seen in ER was subsequently discharged home patient was tested for Covid19 which was [address] CT of the abdomen at that time did not show any significant abnormality except for constipation and significant amount of stool in the colon. Patient patient did take multiple medications for constipation with only 1 bowel movement. Patient can you to have fever and patient started having transaminitis because of which patient was sent to ER again. Patient the AST and ALT are bit worse than yesterday patient the liver enzymes has gone up from 100s to 200s because of which there was a concern of hepatitis and subsequently admitted to the hospital. Patient was tested for EBV IgM antibody is negative. Patient hepatit is panel is within normal notes ultrasound of the gallbladder did not show any significant abnormality even when questioned about abdominal pain patient was having abdominal pain when she started having fever which is lower abdominal pain which completely resolved at this time. Patient didn't have any fever but patient was empirically started on ceftriaxone and metronidazole for possible colitis although there is no evidence of that on the CAT scan because of which I'm stopping the antibiotic all also hold off on nonsteroidal anti-inflammatory recent Tylenol to make sure patient fever is not suppressed patient will be monitored for overnight with we will repeat liver enzymes today and tomorrow and they're coming down patient will be discharged tomorrow patient probably has some acute viral illness patient he is essentially within normal limits patient doesn't have any elevated lipase patient doesn't have any signs or symptoms of meningitis had minimal headache but no photophobia no local rigidity or neck rigidity patient looks well doesn't look appear to be toxic at this time.patient was having myalgias generalized body aches when she had fever 04/05/2020 Patient is seen and evaluated in follow-up today stating that she feels much better and is not having any episodes of nausea or vomiting. GI following. Patient's diet will be advanced and monitor for tolerance. Patient also completed a bowel prep and is having active bowel movements and is passing gas. Patient denies any abdominal discomfort at this time. Patient's liver functions elevated today and will repeat labs in the morning. Currently no reports of chest pain, shortness of breath, or palpitations. Patient states she did have a low-grade fever in the middle of the night although no reported attempts today. Patient denies any nausea or vomiting and will be started on diet today. Objective - Vital Signs Vital signs: Vital Signs Temp 98.8 F 04/05/20 08:53 Pulse 80 04/05/20 08:53 Resp 16 04/05/20 08:53 BP 119/74 04/05/20 08:53 Pulse Ox 98 04/05/20 08:53 Intake & Output 04/04/20 04/05/20 04/05/20 18:59 06:59 18:59 Other: # Voids 2 2 - Exam GENERAL: The patient is alert and oriented x3, not in any acute distress. Well developed, well nourished. HEENT: Pupils are round and equally reacting to light. EOMI. No scleral icterus. No conjunctival pallor. Normocephalic, atraumatic. No pharyngeal erythema. No thyromegaly. CARDIOVASCULAR: S1 and S2 present. No murmurs, rubs, or gallops. PULMONARY: Chest is clear to auscultation, no wheezing or crackles. ABDOMEN: Soft, nontender, nondistended, normoactive bowel sounds. No palpable organomegaly. MUSCULOSKELETAL: No joint swelling or deformity. EXTREMITIES: No cyanosis, clubbing, or pedal edema. NEUROLOGICAL: Gross neurological examination did not reveal any focal deficits. SKIN: No rashes. - Labs CBC & Chem 7: 04/04/20 12:26 04/05/20 05:46 Labs: Abnormal Lab Results - Last 24 Hours (Table) 04/04/20 04/04/20 04/04/20 Range/Units 12:26 12:30 12:30 Sodium 136 L (137-145) mmol/L BUN 4 L (7-17) mg/dL Calcium 7.8 L (8.4-10.2) mg/dL Iron 30 L (50-170) ug/dL % Saturation 9.40 L (12.00-45.00) Total Bilirubin 0.1 L (0.2-1.3) mg/dL AST 139 H (14-36) U/L ALT 208 H (4-34) U/L Alkaline Phosphatase (38-126) U/L Total Protein 5.8 L (6.3-8.2) g/dL Total Protein (PEP) 5.3 L (6.2-8.2) g/dL Albumin 3.2 L (3.5-5.0) g/dL 04/05/20 Range/Units 05:46 Sodium (137-145) mmol/L BUN 2 L (7-17) mg/dL Calcium 8.1 L (8.4-10.2) mg/dL Iron (50-170) ug/dL % Saturation (12.00-45.00) Total Bilirubin (0.2-1.3) mg/dL AST 306 H (14-36) U/L ALT 326 H (4-34) U/L Alkaline Phosphatase 185 H (38-126) U/L Total Protein 5.7 L (6.3-8.2) g/dL Total Protein (PEP) (6.2-8.2) g/dL Albumin 3.3 L (3.5-5.0) g/dL Microbiology - Last 24 Hours (Table) 04/03/20 19:10 Blood Culture - Preliminary Blood No Growth after 24 hours Assessment and Plan Assessment: -fever with elevated liver enzymes probably due to acute viral illness with ruled out hepatitis, diverticulitis. -Constipation, resolved. Patient completed half of a bowel prep and is having bowel movements -depression for which patient uses duloxetine which will be continued -possible nonalcoholic steatohepatitis. -Mild hypovolemic hyponatremia, improved -DVT prophylaxis early ambulation Plan: Continue current medications. GI following. Will initiate diet and monitor for tolerance. Will repeat liver function testing tomorrow morning. Further rec ommendations to follow. Anticipate discharge in a.m.
[2020-04-05 13:08] LABS: Ceruloplasmin 35.1 mg/dL (20.0-60.0)
[2020-04-05] MEDS: DULoxetine HCL 60 MG CAPSULE.DR PO SCH (20:11)
[2020-04-06 06:04] LABS: ALT 316 U/L (4-34); AST 226 U/L (14-36); African American GFR (CKD) >90 (>60 ml/min/1.73 sqM); Albumin 3.3 g/dL (3.5-5.0); Alkaline Phosphatase 193 U/L (38-126); Anion Gap 5 mmol/L; Blood Urea Nitrogen 3 mg/dL (7-17); Calcium 8.4 mg/dL (8.4-10.2); Carbon Dioxide 23 mmol/L (22-30); Chloride 105 mmol/L (98-107); Glucose 104 mg/dL (74-99); Non-African American GFR(CKD) >90 (>60 ml/min/1.73 sqM); Potassium 3.9 mmol/L (3.5-5.1); Sodium 133 mmol/L (137-145); Total Bilirubin 0.2 mg/dL (0.2-1.3); Total Protein 5.8 g/dL (6.3-8.2)
[2020-04-06 06:20] LABS: HCT 35.8 % (34.0-46.0); HGB 11.7 gm/dL (11.4-16.0); MCH 28.4 pg (25.0-35.0); MCHC 32.8 g/dL (31.0-37.0); MCV 86.6 fL (80.0-100.0); Mean Platelet Volume 6.9; Platelet Count 202 k/uL (150-450); RBC 4.13 m/uL (3.80-5.40); RDW 14.4 % (11.5-15.5); WBC 5.1 k/uL (3.8-10.6)
[2020-04-06 07:05] LABS: Basophils # (M) 0.05 k/uL (0-0.2); Eosinophils # (M) 0.05 k/uL (0-0.7); Monocytes # (M) 0.31 k/uL (0-1.0); Neutrophils # (M) 2.19 k/uL (1.3-7.7); Neutrophils % (M) 43 %; Nucleated Red Blood Cells 0 /100 WBC (0-0); Total Cells Counted 100
[2020-04-06 07:06] LABS: Reactive Lymphocytes Present
[2020-04-06 09:15] VITALS: BP 128/82; PULSE 87; RESP 18; TEMP 98.9
--- NOTE | 2020-04-06 10:34 | P.PN ---
Subjective Progress Note Date: 04/05/20 Principal diagnosis: Elevated liver enzymes, abdominal pain Patient is seen lying in bed reporting that she is feeling better after bowel movements with bowel prep. No nausea or vomiting. Tolerating diet. Objective - Vital Signs Vital signs: Vital Signs Temp 99.1 F 04/05/20 12:07 Pulse 90 04/05/20 12:07 Resp 16 04/05/20 12:07 BP 118/76 04/05/20 12:07 Pulse Ox 98 04/05/20 12:07 Intake & Output 04/04/20 04/05/20 04/05/20 18:59 06:59 18:59 Other: # Voids 2 2 - Exam On physical examination, patient appears comfortable in no apparent distress. HEAD: Normocephalic, atraumatic. EYES: No scleral icterus. No conjunctival injection. MOUTH: No lesions, tongue midline. NECK: Trachea midline, no gross abnormalities. ABDOMEN: Soft, obese. Bowel sounds are positive. No organomegaly. No guarding or rigidity. EXTREMITIES: No pedal edema. SKIN: No rashes, no jaundice. NEUROLOGIC: Alert and oriented x3. No focal deficits. - Labs CBC & Chem 7: 04/06/20 05:36 04/06/20 05:36 Labs: Abnormal Lab Results - Last 24 Hours (Table) 04/04/20 04/04/20 04/05/20 Range/Units 12:30 12:30 05:46 BUN 2 L (7-17) mg/dL Calcium 8.1 L (8.4-10.2) mg/dL Iron 30 L (50-170) ug/dL % Saturation 9.40 L (12.00-45.00) AST 306 H (14-36) U/L ALT 326 H (4-34) U/L Alkaline Phosphatase 185 H (38-126) U/L Total Protein 5.7 L (6.3-8.2) g/dL Total Protein (PEP) 5.3 L (6.2-8.2) g/dL Albumin 3.3 L (3.5-5.0) g/dL Microbiology - Last 24 Hours (Table) 04/03/20 19:10 Blood Culture - Preliminary Blood No Growth after 24 hours Assessment and Plan (1) Transaminitis Narrative/Plan: 32-year-old who presented with a constellation of symptoms including fevers, myalgias, constipation and was found to have elevation in her liver enzymes with total bilirubin 0.1, alkaline phosphatase 125, AST 139 and ALT 208. Prior history of elevated liver enzymes. Ultrasound of the abdomen suggestive of fatty liver. No other abnormality seen on computed tomography scan however patient did have significant fecal retention. She has been suffering from increased constipation over the past month or so. No prior endoscopic evaluati on. She denies any new medications or recent antibiotic use. Unclear etiology of elevated liver enzymes with suspicion for viral hepatitis in the setting of associated fevers and myalgias. Acute viral hepatitis panel testing negative. Other liver serologies ordered and pending. Current Visit: Yes Status: Acute Code(s): R74.0 - NONSPEC ELEV OF LEVELS OF TRANSAMNS & LACTIC ACID DEHYDRGNSE SNOMED Code(s): 552637756 (2) Abdominal pain Narrative/Plan: Multifactorial given fibromyalgia and rheumatoid arthritis with likely component of constipation with significant stool burden on CT abdomen. Improved with bowel movements. Current Visit: Yes Status: Acute Code(s): R10.9 - UNSPECIFIED ABDOMINAL PAIN SNOMED Code(s): 39828534 Plan: Supportive care Okay for diet as tolerated Continue to monitor CBC, BMP, LFTs Liver serology ordered No plans for endoscopic evaluation at this time, patient encouraged to follow-up in the outpatient setting if constipation persists Thank you for allowing us to participate in the care of the patient
[2020-04-06] MEDS: KETOROLAC 30 MG/ML 1 ML VIAL IVP PRN (11:36)
--- NOTE | 2020-04-06 12:39 | P.DS ---
Providers Date of admission: 04/05/20 09:47 Expected date of discharge: 04/06/20 Attending physician: Tomas Ortez MD Consults: 04/03/20 20:41 Consult Physician Stat Consulting Provider: Michael Duong Consult Reason/Comments: transaminitis, abdominal pain Do you want consulting provider notified?: Yes Primary care physician: Bibi Zarate [place] Course: Final diagnosis -fever with elevated liver enzymes probably due to acute viral illness with ruled out hepatitis, diverticulitis. -Constipation, resolved. 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 -Mild hypovolemic hyponatremia, improved -DVT prophylaxis Discharge disposition Patient is being discharged in a stable condition with guarded prognosis to home and will follow-up with Dr. Zarate upon discharge. Patient will also be following up with GI as discussed and scheduled. Total time taken is 35 minutes. History of present illness This is a 40-year-old female who was recently admitted with fever and body aches and was being closely monitored. Patient underwent a CT of the abdomen which showed constipation. Patient started having transaminitis along with elevated liver functions with some abdominal pain was evaluated by GI. Patient underwent the bowel prep to assist with constipation and patient is actively having bowel movements. Patient's liver functions today slightly improved and her trending down. Patient provided a prescription for repeat labs in a few days and will follow-up with primary care provider upon discharge. Patient also instructed to follow-up with GI in the outpatient setting as needed. Patient will continue on a low fiber low fat diet in the outpatient setting. Patient also continues to have mild low-grade fevers and instructed to continue using Tylenol as needed for temperature control. Patient states she feels better and is tolerating diet with no reports of abdominal discomfort. Patient would like to go home today. Currently patient has no reports of chest pain, shortness of breath, or palpitations. Patient is afebrile. No reports of nausea or vomiting and patient is tolerating diet. Patient will be discharged home today. On exam vital signs are stable. Temp is 98.9F, pulse is 87, respirations are 18, blood pressure is 128/82, oxygen saturation is 97% on room air. Cardio S1, S2 are present. Respiratory system shows clear to auscultation. Abdomen is soft and nontender. Nervous system shows no focal deficits. Please refer to medication reconciliation sheet for a list of medications. Patient Condition at Discharge: Stable Plan - Discharge Summary New Discharge Prescriptions: Continue DULoxetine HCL [Cymbalta] 120 mg PO HS Acetaminophen Tab [Tylenol] 1,000 mg PO Q6HR PRN PRN Reason: Pain Meloxicam [Mobic] 15 mg PO HS metFORMIN HCL [Glucophage] 500 mg PO BID Discharge Medication List DULoxetine HCL [Cymbalta] 120 mg PO HS 02/25/19 [History] Acetaminophen Tab [Tylenol] 1,000 mg PO Q6HR PRN 04/03/20 [History] Meloxicam [Mobic] 15 mg PO HS 04/03/20 [History] metFORMIN HCL [Glucophage] 500 mg PO BID 04/03/20 [History] Follow up Appointment(s)/Referral(s): Bibi Zarate III, MD [Primary Care Provider] - 04/11/20 9:30 am (You have an appointment with Dr Cannon on Saturday, April 11, 2020 at 9:30 am) Michael Duong MD [STAFF PHYSICIAN] - 05/12/20 12:45 pm (You have an appointment with Dr Duong on Tuesday, May 12, 2020 at 12:45 pm.) Ambulatory/Diagnostic Orders: ALT [LAB.AMB] Time Frame: 2 Days, Location: None Selected AST [LAB.AMB] Time Frame: 2 Days, Location: None Selected Basic Metabolic Panel [LAB.AMB] Time Frame: 2 Days, Location: None Selected Patient Instructions/Handouts: Low Fat Diet (GEN) Activity/Diet/Wound Care/Special Instructions: Activity Limited until follow-up Encouraged fluids and rest Follow-up with primary care provider upon discharge Follow-up with GI in the outpatient setting Continue to monitor for fever and treat with Tylenol and/or Motrin as needed Continue following a low-fat diet Repeat labs in 2-3 days. [facility] is closed on Friday. It is open M- from 0700 to 3:30 pm. Mondays are super busy in the morning. Call [place] to update your insurance [phone]. Discharge Disposition: HOME SELF-CARE
[2020-04-06 12:43] LABS: Liver/Kidney Microsome Antibod 1.8 UNITS (<=20)
[2020-04-06 14:14] LABS: Albumin 3.12 g/dL (3.80-4.90); Gamma Globulin 0.54 g/dL (0.70-1.50)
== END 2020-04-06 12:30 | disposition home or self-care (01) | DRG 866 ==
LOC: EC 16:17 → 6PED 20:10 → OBSVTOIN 04-05 09:47
PROVIDERS: ADMIT Internal Medicine; ATTEND Internal Medicine
DX: B34.9 Viral infection, unspecified (principal); E87.1 Hypo-osmolality and hyponatremia; K75.81 Nonalcoholic steatohepatitis (NASH); E86.1 Hypovolemia; F32.9 Major depressive disorder, single episode, unspecified; G43.909 Migraine, unspecified, not intractable, without status migrainosus; K59.00 Constipation, unspecified; M06.9 Rheumatoid arthritis, unspecified; M79.7 Fibromyalgia; R74.0 Nonspecific elevation of levels of transaminase and lactic acid dehydrogenase [LDH]; Z11.59 Encounter for screening for other viral diseases; Z79.84 Long term (current) use of oral hypoglycemic drugs; Z79.899 Other long term (current) drug therapy; Z82.49 Family history of ischemic heart disease and other diseases of the circulatory system
CPT/HCPCS: 36415; 74018; 76705; 76830; 80053; 80074; 80306; 80329; 81003; 81025; 82103; 82105; 82390; 82728; 82977; 83516; 83540; 83550; 83605; 83690; 84165; 84703; 85025; 85610; 86038; 86308; 86376; 86644; 86645; 86663; 86664; 86665; 87040; 93975; 96361; 96365; 96375; 99285

== ENCOUNTER → 2020-04-10 | Outpatient (CLI) | payer OTHER ==
[2020-04-11 02:37] LABS: African American GFR (CKD) 108.4 (60.0-200.0); Anion Gap 7.2 mmol/L (4.00-12.00); Calcium 8.7 mg/dL (8.7-10.3); Carbon Dioxide 28.8 mmol/L (21.6-31.8); Non-African American GFR(CKD) 93.5 (60.0-200.0); Potassium 3.9 mmol/L (3.5-5.5)
== END | disposition home or self-care (01) ==
LOC: LABWHC1 13:32
PROVIDERS: ATTEND Registered Nurse
DX: E87.1 Hypo-osmolality and hyponatremia (principal); R79.89 Other specified abnormal findings of blood chemistry
CPT/HCPCS: 36415; 80048; 84075; 84450; 84460

== ENCOUNTER 2020-12-24 17:58 | Emergency (ER) | payer BC, OTHER ==
[2020-12-24 18:14] VITALS: TEMP 98.1
[2020-12-24 19:03] LABS: Basophils % (A) 1 %; Eosinophils # (A) 0.1 k/uL (0-0.7); Eosinophils % (A) 2 %; HCT 33.2 % (34.0-46.0); HGB 10.9 gm/dL (11.4-16.0); Lymphocytes # (A) 2.7 k/uL (1.0-4.8); Lymphocytes % (A) 38 %; MCH 25.8 pg (25.0-35.0); MCHC 32.9 g/dL (31.0-37.0); MCV 78.5 fL (80.0-100.0); Mean Platelet Volume 6.6; Monocytes # (A) 0.4 k/uL (0-1.0); Monocytes % (A) 6 %; Neutrophils # (A) 3.8 k/uL (1.3-7.7); Neutrophils % (A) 52 %; Platelet Count 375 k/uL (150-450); RBC 4.22 m/uL (3.80-5.40); RDW 14.6 % (11.5-15.5); WBC 7.3 k/uL (3.8-10.6)
--- NOTE | 2020-12-24 19:04 | ED ---
Recheck HPI - General Chief Complaint: Recheck/Abnormal Lab/Rx Stated Complaint: Dizziness,High BP Time Seen by Provider: 12/24/20 18:28 Source: patient Mode of arrival: wheelchair Limitations: no limitations - History of Present Illness Initial Comments: 40-year-old female presents to emergency Department with chief complaint of high blood pressure and palpitations. Patient reports recently her was diagnosed with hypertension and they have obtained a blood pressure machine. Patient states she randomly begin checking her blood pressure and have been staying elevated 150-170 systolic with 90-105 diastolic. Patient states she contacted her primary care physician who advised her to go to the emergency department if these numbers continue to be elevated because he is currently unavailable to see her. Patient reports occasional palpitations that she noticed last week that only lasted for short period of time. Denies any associated shortness of breath. Denies any chest pain, blurry vision, one-sided weakness or paresthesias, headaches. - Related Data Home Medications Medication Instructions Recorded Confirmed DULoxetine HCL [Cymbalta] 120 mg PO HS 02/25/19 04/03/20 Acetaminophen Tab [Tylenol] 1,000 mg PO Q6HR PRN 04/03/20 04/03/20 Meloxicam [Mobic] 15 mg PO HS 04/03/20 04/03/20 metFORMIN HCL [Glucophage] 500 mg PO BID 04/03/20 04/03/20 Allergies Allergy/AdvReac Type Severity Reaction Status Date / Time No Known Allergies Allergy Verified 12/24/20 18:14 Review of Systems ROS Statement: Those systems with pertinent positive or pertinent negative responses have been documented in the HPI. ROS Other: All systems not noted in ROS Statement are negative. Past Medical History Past Medical History: No Reported History, Rheumatoid Arthritis (RA) Additional Past Medical History / Comment(s): fibermyalgia, [place] at 15yr old History of Any Multi-Drug Resistant Organisms: None Reported Past Surgical History: Section Additional Past Surgical History / Comment(s): D&C Past Anesthesia/Blood Transfusion Reactions: No Reported Reaction Past Psychological History: No Psychological Hx Reported Past Alcohol Use History: None Reported Past Drug Use History: None Reported - Past Family History Mother Family Medical History: Hypertension General Exam Limitations: no limitations General appearance: alert, in no apparent distress Head exam: Present: atraumatic, normocephalic, normal inspection Eye exam: Present: normal appearance, PERRL, EOMI Pupils: Present: normal accommodation ENT exam: Present: normal exam, normal oropharynx, mucous membranes moist, TM's normal bilaterally, normal external ear exam Neck exam: Present: normal inspection, full ROM. Absent: tenderness Respiratory exam: Present: normal lung sounds bilaterally. Absent: respiratory distress, wheezes, rales, rhonchi, stridor, chest wall tenderness Cardiovascular Exam: Present: regular rate, normal rhythm, normal heart sounds Extremities exam: Present: normal inspection, full ROM, normal capillary refill. Absent: tenderness, pedal edema, joint swelling Back exam: Present: normal inspection, full ROM Neurological exam: Present: alert, oriented X3, CN II-XII intact, normal gait Psychiatric exam: Present: normal affect, normal mood Skin exam: Present: warm, dry, intact, normal color Course Vital Signs 12/24/20 12/24/20 18:11 18:52 Temperature 98.1 F Pulse Rate 80 89 Respiratory 18 18 Rate Blood Pressure 156/92 144/97 O2 Sat by Pulse 100 100 Oximetry Medical Decision Making - Medical Decision Making 40-year-old female with no significant past medical history presents to the emergency department with a chief complaint of elevated blood pressure. Physical examination is unremarkable. Patient has no risk factors. CBC CMP remarkable. Coags within normal limits. Patient is not . UA unremarkable. Initial troponins are negative. Patient is completely symptomatically emergency department. Her vitals are within normal limits. Patient will be discharged and advised to follow-up with the primary care physician. Return parameters were thoroughly discussed the patient is upsetting agreeable. Case discussed with . - Lab Data Result diagrams: 12/24/20 18:45 12/24/20 18:45 Lab Results 12/24/20 12/24/20 12/24/20 Range/Units 18:45 18:45 18:45 WBC 7.3 (3.8-10.6) k/uL RBC 4.22 (3.80-5.40) m/uL Hgb 10.9 L (11.4-16.0) gm/dL Hct 33.2 L (34.0-46.0) % MCV 78.5 L (80.0-100.0) fL MCH 25.8 (25.0-35.0) pg MCHC 32.9 (31.0-37.0) g/dL RDW 14.6 (11.5-15.5) % Plt Count 375 (150-450) k/uL MPV 6.6 Neutrophils % 52 % Lymphocytes % 38 % Monocytes % 6 % Eosinophils % 2 % Basophils % 1 % Neutrophils # 3.8 (1.3-7.7) k/uL Lymphocytes # 2.7 (1.0-4.8) k/uL Monocytes # 0.4 (0-1.0) k/uL Eosinophils # 0.1 (0-0.7) k/uL Basophils # 0.0 (0-0.2) k/uL PT 9.7 (9.0-12.0) sec INR 0.9 (<1.2) APTT 24.8 (22.0-30.0) sec Sodium 135 L (137-145) mmol/L Potassium 3.8 (3.5-5.1) mmol/L Chloride 102 (98-107) mmol/L Carbon Dioxide 27 (22-30) mmol/L Anion Gap 6 mmol/L BUN 9 (7-17) mg/dL Creatinine 0.79 (0.52-1.04) mg/dL Est GFR (CKD-EPI)AfAm >90 (>60 ml/min/1.73 sqM) Est GFR (CKD-EPI)NonAf >90 (>60 ml/min/1.73 sqM) Glucose 87 (74-99) mg/dL Calcium 9.0 (8.4-10.2) mg/dL Magnesium 2.0 (1.6-2.3) mg/dL Total Bilirubin 0.2 (0.2-1.3) mg/dL AST 24 (14-36) U/L ALT 16 (4-34) U/L Alkaline Phosphatase 65 (38-126) U/L Troponin I (0.000-0.034) ng/mL Total Protein 6.7 (6.3-8.2) g/dL Albumin 4.2 (3.5-5.0) g/dL Urine Color Urine Appearance (Clear) Urine pH (5.0-8.0) Ur Specific [place] (1.001-1.035) Urine Protein (Negative) Urine Glucose (UA) (Negative) Urine Ketones (Negative) Urine Blood (Negative) Urine Nitrite (Negative) Urine Bilirubin (Negative) Urine Urobilinogen (<2.0) mg/dL Ur Leukocyte Esterase (Negative) Urine HCG, Qual (Not Detectd) 12/24/20 12/24/20 12/24/20 Range/Units 18:48 18:48 18:52 WBC (3.8-10.6) k/uL RBC (3.80-5.40) m/uL Hgb (11.4-16.0) gm/dL Hct (34.0-46.0) % MCV (80.0-100.0) fL MCH (25.0-35.0) pg MCHC (31.0-37.0) g/dL RDW (11.5-15.5) % Plt Count (150-450) k/uL MPV Neutrophils % % Lymphocytes % % Monocytes % % Eosinophils % % Basophils % % Neutrophils # (1.3-7.7) k/uL Lymphocytes # (1.0-4.8) k/uL Monocytes # (0-1.0) k/uL Eosinophils # (0-0.7) k/uL Basophils # (0-0.2) k/uL PT (9.0-12.0) sec INR (<1.2) APTT (22.0-30.0) sec Sodium (137-145) mmol/L Potassium (3.5-5.1) mmol/L Chloride (98-107) mmol/L Carbon Dioxide (22-30) mmol/L Anion Gap mmol/L BUN (7-17) mg/dL Creatinine (0.52-1.04) mg/dL Est GFR (CKD-EPI)AfAm (>60 ml/min/1.73 sqM) Est GFR (CKD-EPI)NonAf (>60 ml/min/1.73 sqM) Glucose (74-99) mg/dL Calcium (8.4-10.2) mg/dL Magnesium (1.6-2.3) mg/dL Total Bilirubin (0.2-1.3) mg/dL AST (14-36) U/L ALT (4-34) U/L Alkaline Phosphatase (38-126) U/L Troponin I <0.012 (0.000-0.034) ng/mL Total Protein (6.3-8.2) g/dL Albumin (3.5-5.0) g/dL Urine Color Light Yellow Urine Appearance Clear (Clear) Urine pH 6.0 (5.0-8.0) Ur Specific [place] 1.009 (1.001-1.035) Urine Protein Negative (Negative) Urine Glucose (UA) Negative (Negative) Urine Ketones Negative (Negative) Urine Blood Negative (Negative) Urine Nitrite Negative (Negative) Urine Bilirubin Negative (Negative) Urine Urobilinogen <2.0 (<2.0) mg/dL Ur Leukocyte Esterase Negative (Negative) Urine HCG, Qual Not Detected (Not Detectd) Disposition Clinical Impression: Elevated blood pressure reading Disposition: HOME SELF-CARE Condition: Stable Instructions (If sedation given, give patient instructions): Hypertension (ED) Additional Instructions: Please return to the Emergency Department if symptoms worsen or any other concerns. Is patient prescribed a controlled substance at d/c from ED?: No Referrals: Bibi Zarate III, MD [Primary Care Provider] - 1-2 days Time of Disposition: 19:48
[2020-12-24 19:15] LABS: INR 0.9 (<1.2); Partial Thromboplastin Time 24.8 sec (22.0-30.0); Prothrombin Time 9.7 sec (9.0-12.0)
[2020-12-24 19:19] LABS: Appearance,Urine Clear (Clear); Bilirubin,Urine Negative (Negative); Blood,Urine Negative (Negative); Color,Urine Light Yellow; Glucose,Urine (UA) Negative (Negative); Ketones,Urine Negative (Negative); Leukocyte Esterase,Urine Negative (Negative); Nitrite,Urine Negative (Negative); Protein,Urine Negative (Negative); Specific Gravity,Urine 1.009 (1.001-1.035); Urobilinogen,Urine <2.0 mg/dL (<2.0)
[2020-12-24] MEDS ORDERED: MAG HYDROX/AL HYDROX/SIMETH 30 ML, HYOSCYAMINE ELIXIR 10 ML, LIDOCAINE VISCOUS 2% 10 ML PO STA ×3 (19:28)
--- NOTE | 2020-12-24 19:28 | XR ---
EXAMINATION TYPE: XR chest 2V DATE OF EXAM: 12/24/2020 COMPARISON: 11/20/2017 HISTORY: Chest pain TECHNIQUE: Frontal and lateral views of the chest are obtained. FINDINGS: There is no focal air space opacity, pleural effusion, or pneumothorax seen. The cardiac silhouette size is within normal limits. The osseous structures are intact. IMPRESSION: No acute cardiopulmonary process.
[2020-12-24 19:32] LABS: ALT 16 U/L (4-34); AST 24 U/L (14-36); African American GFR (CKD) >90 (>60 ml/min/1.73 sqM); Albumin 4.2 g/dL (3.5-5.0); Alkaline Phosphatase 65 U/L (38-126); Anion Gap 6 mmol/L; Blood Urea Nitrogen 9 mg/dL (7-17); Carbon Dioxide 27 mmol/L (22-30); Chloride 102 mmol/L (98-107); Glucose 87 mg/dL (74-99); Non-African American GFR(CKD) >90 (>60 ml/min/1.73 sqM); Potassium 3.8 mmol/L (3.5-5.1); Sodium 135 mmol/L (137-145); Total Bilirubin 0.2 mg/dL (0.2-1.3); Total Protein 6.7 g/dL (6.3-8.2)
[2020-12-24 20:29] VITALS: BP 131/92; PULSE 85; RESP 16
== END 2020-12-24 20:29 | disposition home or self-care (01) ==
LOC: EC 17:58
DX: I10 Essential (primary) hypertension (principal); M06.9 Rheumatoid arthritis, unspecified
CPT/HCPCS: 36415; 71046; 80053; 81003; 81025; 83735; 84484; 85025; 85610; 85730; 93005; 99284

== ENCOUNTER 2021-12-24 15:47 | Emergency (ER) | payer BC, OTHER ==
[2021-12-24 16:18] VITALS: BP 146/78; PULSE 80; RESP 18; TEMP 99.7
--- NOTE | 2021-12-24 17:36 | US ---
EXAMINATION TYPE: US OB >= 14 wk fetus DATE OF EXAM: 12/24/2021 COMPARISON: None CLINICAL HISTORY: ABDOMINAL CRAMPING TECHNIQUE: Transabdominal (TA) GESTATIONAL AGE / DATING Physician Established: (19 weeks/2 days) EDC: 05-17-22 Dates by LMP: LMP unknown Dates by First Scan: No previous at this facility Dates by Current Scan: ( 19 weeks/3 days) EDC: 05-18-22 Beta HCG (if available): Not available. SURVEY IUP: Single PLACENTA: Anterior PREVIA: No Previa KATE: 15.5 cm CERVICAL LENGTH (transabdominal: norm > 3.0cm): 3.5 cm BIOMETRY PRESENTATION: Breech BPD: 4.5 cm 19 weeks / 3 days HC: 16.7 cm 19 weeks / 3 days AC: 14.1 cm 19 weeks / 3 days FL: 3.0 cm 19 weeks / 3 days ESTIMATED WEIGHT IN GRAMS: 292 grams ESTIMATED WEIGHT IN LBS/OZ: 0 lbs. 10 oz. WEIGHT PERCENTAGE BASED ON ESTABLISHED DATES: 45% HC/AC: 1.2 FL/AC: 21.5 HEART RATE: 158 bpm RHYTHM: Normal IMPRESSION: Single live intrauterine as described above.
[2021-12-24 17:47] LABS: Appearance,Urine Clear (Clear); Bilirubin,Urine Negative (Negative); Blood,Urine Negative (Negative); Color,Urine Yellow; Glucose,Urine (UA) Negative (Negative); Ketones,Urine 1+ (Negative); Leukocyte Esterase,Urine Negative (Negative); Nitrite,Urine Negative (Negative); Protein,Urine Trace (Negative); Urobilinogen,Urine <2.0 mg/dL (<2.0)
[2021-12-24 17:48] LABS: Anisocytosis Slight; Basophils % (A) 0 %; Eosinophils # (A) 0.1 k/uL (0-0.7); Eosinophils % (A) 1 %; HCT 37.2 % (34.0-46.0); HGB 12.2 gm/dL (11.4-16.0); Lymphocytes % (A) 16 %; MCH 28.4 pg (25.0-35.0); MCHC 32.8 g/dL (31.0-37.0); MCV 86.7 fL (80.0-100.0); Mean Platelet Volume 7.1; Microcytosis Slight; Monocytes # (A) 0.6 k/uL (0-1.0); Monocytes % (A) 5 %; Neutrophils # (A) 10.2 k/uL (1.3-7.7); Neutrophils % (A) 77 %; Platelet Count 358 k/uL (150-450); RDW 18.5 % (11.5-15.5); WBC 13.2 k/uL (3.8-10.6)
[2021-12-24 18:06] LABS: ALT 18 U/L (4-34); AST 24 U/L (14-36); African American GFR (CKD) >90 (>60 ml/min/1.73 sqM); Albumin 3.5 g/dL (3.5-5.0); Alkaline Phosphatase 81 U/L (38-126); Anion Gap 7 mmol/L; Blood Urea Nitrogen 6 mg/dL (7-17); Calcium 8.6 mg/dL (8.4-10.2); Carbon Dioxide 24 mmol/L (22-30); Chloride 102 mmol/L (98-107); Glucose 91 mg/dL (74-99); Non-African American GFR(CKD) >90 (>60 ml/min/1.73 sqM); Potassium 3.7 mmol/L (3.5-5.1); Sodium 133 mmol/L (137-145); Total Bilirubin 0.3 mg/dL (0.2-1.3); Total Protein 6.4 g/dL (6.3-8.2)
[2021-12-24 18:55] LABS: HCG,Quantitative Serum 25915.7 mIU/mL
--- NOTE | 2021-12-24 19:52 | ED ---
Abdominal Pain HPI - General Chief Complaint: OB/Uterine Contractions Stated Complaint: 19wks preg, cramping Time Seen by Provider: 12/24/21 19:33 Source: patient, RN notes reviewed Mode of arrival: ambulatory Limitations: no limitations - History of Present Illness Initial Comments: This is a pleasant 41-year-old female who is A0. Presenting to the emergency department with pelvic cramping last 12 hours. No alleviating or exacerbating factors. No radiation. Does not, consistent intervals. Cramping is sporadic. No vaginal discharge or vaginal leakage. No headache, no fever or chills, no changes in vision or hearing, no sore throat or difficulty with speech, no neck pain, no chest pain or shortness of breath, no abdominal pain, no nausea or vomiting, no changes in urination or bowel movements, no numbness or tingling, no extremity pain, no skin rashes or lesions. MD Complaint: abdominal pain - Related Data Home Medications Medication Instructions Recorded Confirmed DULoxetine HCL [Cymbalta] 120 mg PO HS 02/25/19 04/03/20 Acetaminophen Tab [Tylenol] 1,000 mg PO Q6HR PRN 04/03/20 04/03/20 Meloxicam [Mobic] 15 mg PO HS 04/03/20 04/03/20 metFORMIN HCL [Glucophage] 500 mg PO BID 04/03/20 04/03/20 Allergies Allergy/AdvReac Type Severity Reaction Status Date / Time No Known Allergies Allergy Verified 12/24/21 16:18 Review of Systems ROS Statement: Those systems with pertinent positive or pertinent negative responses have been documented in the HPI. ROS Other: All systems not noted in ROS Statement are negative. Past Medical History Past Medical History: No Reported History, Rheumatoid Arthritis (RA) Additional Past Medical History / Comment(s): fibermyalgia, [place] at 15yr old History of Any Multi-Drug Resistant Organisms: None Reported Past Surgical History: Section Additional Past Surgical History / Comment(s): D&C Past Anesthesia/Blood Transfusion Reactions: No Reported Reaction Past Psychological History: No Psychological Hx Reported Smoking Status: Never smoker Past Alcohol Use History: None Reported Past Drug Use History: None Reported - Past Family History Mother Family Medical History: Hypertension General Exam - General Exam Comments Initial Comments: Healthy-appearing 41-year-old female in no distress. Patient does not appear to be ill or toxic. Ultrasound shows an intrauterine with breech presentation at 19 weeks 3 days. heart rate is 150 Limitations: no limitations General appearance: alert, in no apparent distress Head exam: Present: atraumatic, normocephalic, normal inspection Eye exam: Present: normal appearance, PERRL, EOMI. Absent: scleral icterus, conjunctival injection, periorbital swelling ENT exam: Present: normal exam, mucous membranes moist Neck exam: Present: normal inspection. Absent: tenderness, meningismus, lymphadenopathy Respiratory exam: Present: normal lung sounds bilaterally. Absent: respiratory distress, wheezes, rales, rhonchi, stridor Cardiovascular Exam: Present: regular rate, normal rhythm, normal heart sounds. Absent: systolic murmur, diastolic murmur, rubs, gallop, clicks GI/Abdominal exam: Present: soft, normal bowel sounds, organomegaly (Gravid uterus with no significant tenderness). Absent: distended, tenderness, guarding , rebound, rigid Extremities exam: Present: normal inspection, full ROM, normal capillary refill. Absent: tenderness, pedal edema, joint swelling, calf tenderness Back exam: Present: normal inspection Neurological exam: Present: alert, oriented X3, CN II-XII intact Psychiatric exam: Present: normal affect, normal mood Skin exam: Present: warm, dry, intact, normal color. Absent: rash Course Vital Signs 12/24/21 16:14 Temperature 99.7 F H Pulse Rate 80 Respiratory 18 Rate Blood Pressure 146/78 O2 Sat by Pulse 98 Oximetry Medical Decision Making - Medical Decision Making Case discussed in detail with the on-call beam sealer, Dr. Crouch who is on- call for the patient's OB doctor, Dr. Castro. That the patient's symptomology may be related to round ligament pain. I think this is unlikely to be appendicitis. Patient was waiting in the waiting room for almost 4 hours. This was prior to me assessing her. I assessed the patient in the conference room. Patient had no significant abdominal tenderness. Did not appear to be ill or toxic. Dr. Castro okay with deferring the pelvic examination. Dr. Crouch okay with the patient following up with Dr. Castro tomorrow. Patient was told to call without fail. Ultrasound shows a 19 week 3 day intrauterine with breech presentation. heart rate 158. No other significant findings, she had no vaginal leakage or vaginal bleeding We did discuss possible other etiologies. Patient did have a temp of 99 7. I told her to keep an eye on this and return if any problems arise. Patient's clinical presentation consistent with appendicitis or other infectious etiology. Urine was clear. I did offer a pelvic examination to the patient. Patient is going to defer this test through shared decision-making. Patient was told to return to the ER for any signs or symptoms worsen. Told to return immediately if any other problems arise. All questions answered. Treatm ent plan discussed. Patient in agreement Every effort has been made to ensure accuracy of this dictation. However, due to the limitations of electronic medical records and dictation devices, errors in charting still occur. Work note was given. Patient did have an elevated blood pressure with a systolic of 146. This will need to be monitored by Dr. Castro. Again, patient told to call in the morning. - Lab Data Result diagrams: 12/24/21 17:16 12/24/21 17:16 Lab Results 12/24/21 12/24/21 12/24/21 Range/Units 17:16 17:16 17:16 WBC 13.2 H (3.8-10.6) k/uL RBC 4.30 (3.80-5.40) m/uL Hgb 12.2 (11.4-16.0) gm/dL Hct 37.2 (34.0-46.0) % MCV 86.7 (80.0-100.0) fL MCH 28.4 (25.0-35.0) pg MCHC 32.8 (31.0-37.0) g/dL RDW 18.5 H (11.5-15.5) % Plt Count 358 (150-450) k/uL MPV 7.1 Neutrophils % 77 % Lymphocytes % 16 % Monocytes % 5 % Eosinophils % 1 % Basophils % 0 % Neutrophils # 10.2 H (1.3-7.7) k/uL Lymphocytes # 2.0 (1.0-4.8) k/uL Monocytes # 0.6 (0-1.0) k/uL Eosinophils # 0.1 (0-0.7) k/uL Basophils # 0.0 (0-0.2) k/uL Anisocytosis Slight Microcytosis Slight Sodium 133 L (137-145) mmol/L Potassium 3.7 (3.5-5.1) mmol/L Chloride 102 (98-107) mmol/L Carbon Dioxide 24 (22-30) mmol/L Anion Gap 7 mmol/L BUN 6 L (7-17) mg/dL Creatinine 0.61 (0.52-1.04) mg/dL Est GFR (CKD-EPI)AfAm >90 (>60 ml/min/1.73 sqM) Est GFR (CKD-EPI)NonAf >90 (>60 ml/min/1.73 sqM) Glucose 91 (74-99) mg/dL Calcium 8.6 (8.4-10.2) mg/dL Total Bilirubin 0.3 (0.2-1.3) mg/dL AST 24 (14-36) U/L ALT 18 (4-34) U/L Alkaline Phosphatase 81 (38-126) U/L Total Protein 6.4 (6.3-8.2) g/dL Albumin 3.5 (3.5-5.0) g/dL HCG, Quant 06506.7 mIU/mL Urine Color Yellow Urine Appearance Clear (Clear) Urine pH 6.0 (5.0-8.0) Ur Specific [place] 1.020 (1.001-1.035) Urine Protein Trace H (Negative) Urine Glucose (UA) Negative (Negative) Urine Ketones 1+ H (Negative) Urine Blood Negative (Negative) Urine Nitrite Negative (Negative) Urine Bilirubin Negative (Negative) Urine Urobilinogen <2.0 (<2.0) mg/dL Ur Leukocyte Esterase Negative (Negative) Blood Type Blood Type Recheck Bld Type Recheck Status Antibody Screen Spec Expiration Date 12/24/21 Range/Units 17:16 WBC (3.8-10.6) k/uL RBC (3.80-5.40) m/uL Hgb (11.4-16.0) gm/dL Hct (34.0-46.0) % MCV (80.0-100.0) fL MCH (25.0-35.0) pg MCHC (31.0-37.0) g/dL RDW (11.5-15.5) % Plt Count (150-450) k/uL MPV Neutrophils % % Lymphocytes % % Monocytes % % Eosinophils % % Basophils % % Neutrophils # (1.3-7.7) k/uL Lymphocytes # (1.0-4.8) k/uL Monocytes # (0-1.0) k/uL Eosinophils # (0-0.7) k/uL Basophils # (0-0.2) k/uL Anisocytosis Microcytosis Sodium (137-145) mmol/L Potassium (3.5-5.1) mmol/L Chloride (98-107) mmol/L Carbon Dioxide (22-30) mmol/L Anion Gap mmol/L BUN (7-17) mg/dL Creatinine (0.52-1.04) mg/dL Est GFR (CKD-EPI)AfAm (>60 ml/min/1.73 sqM) Est GFR (CKD-EPI)NonAf (>60 ml/min/1.73 sqM) Glucose (74-99) mg/dL Calcium (8.4-10.2) mg/dL Total Bilirubin (0.2-1.3) mg/dL AST (14-36) U/L ALT (4-34) U/L Alkaline Phosphatase (38-126) U/L Total Protein (6.3-8.2) g/dL Albumin (3.5-5.0) g/dL HCG, Quant mIU/mL Urine Color Urine Appearance (Clear) Urine pH (5.0-8.0) Ur Specific [place] (1.001-1.035) Urine Protein (Negative) Urine Glucose (UA) (Negative) Urine Ketones (Negative) Urine Blood (Negative) Urine Nitrite (Negative) Urine Bilirubin (Negative) Urine Urobilinogen (<2.0) mg/dL Ur Leukocyte Esterase (Negative) Blood Type A Positive Blood Type Recheck A Pos Bld Type Recheck Status No Antibody Screen NEGATIVE Spec Expiration Date 12/27/20212315 Disposition Clinical Impression: Pelvic cramping in antepartum period, Discomfort during , Round ligament pain Disposition: HOME SELF-CARE Condition: Stable Instructions (If sedation given, give patient instructions): Abdominal Pain in (ED) Additional Instructions: Call your beam sealer's office in the morning for follow-up appointment. Return to the ER immediately if any symptoms worsen, new symptoms arise, or any other problems develop. Is patient prescribed a controlled substance at d/c from ED?: No Referrals: Jessi Castro DO [Doctor of Osteopathic Medicine] - 1-2 days Time of Disposition: 19:53
== END 2021-12-24 20:04 | disposition home or self-care (01) ==
LOC: EC 15:47
DX: O26.893 Other specified pregnancy related conditions, third trimester (principal); R10.2 Pelvic and perineal pain; Z3A.19 19 weeks gestation of pregnancy; Z67.10 Type A blood, Rh positive
CPT/HCPCS: 36415; 76805; 80053; 81003; 84702; 85025; 86850; 86900; 86901; 99284

== ENCOUNTER 2022-02-11 09:40 | Emergency (ER) | payer BC, OTHER ==
--- NOTE | 2022-02-11 13:37 | ED ---
General Adult HPI - Related Data Home Medications Medication Instructions Recorded Confirmed DULoxetine HCL [Cymbalta] 120 mg PO HS 02/25/19 02/11/22 Pnv,Calcium 72/Iron/Folic Acid 1 tab PO HS 02/11/22 02/11/22 [ Plus Tablet] Allergies Allergy/AdvReac Type Severity Reaction Status Date / Time No Known Allergies Allergy Verified 02/11/22 15:32 Review of Systems ROS Statement: Those systems with pertinent positive or pertinent negative responses have been documented in the HPI. ROS Other: All systems not noted in ROS Statement are negative. Past Medical History Past Medical History: No Reported History, Rheumatoid Arthritis (RA) Additional Past Medical History / Comment(s): fibermyalgia, [place] at 15yr old History of Any Multi-Drug Resistant Organisms: None Reported Past Surgical History: Section Additional Past Surgical History / Comment(s): D&C Past Anesthesia/Blood Transfusion Reactions: No Reported Reaction Past Psychological History: No Psychological Hx Reported Smoking Status: Never smoker Past Alcohol Use History: None Reported Past Drug Use History: None Reported - Past Family History Mother Family Medical History: Hypertension Medical Decision Making - Medical Decision Making Patient was initially started as a paper chart due to unscheduled EMR down time. Please see paper chart for history of present illness and physical exam. Briefly, patient is a 42-year-old female this is her second . She is allegedly 26 weeks presents to the emergency department with 1 day of severe left-sided neck pain that radiates down to the bilateral lower extremities. She has equal pulses bilaterally. She does not have any paresthesias or sensory deficits to the extremities. Patient states that the pain is very severe. Yesterday she was in the sun when AROUND 7 PM SHE BEGAN HAVING SYMPTOMS. PATIENT TRIED TO MASSAGE THE SYMPTOMS HOWEVER DID NOT IMPROVE SIGNIFICANTLY. SHE HAS NO MEDICAL PROBLEMS. SHE SEES A HIGH RISK MATERNAL- MEDICINE DUE TO ADVANCED MATERNAL AGE. She denies any complications with this . She does not have any history of gestational hypertension. Vital signs upon arrival shows elevated blood pressure. She has had multiple blood pressure measurements in the emergency room with all systolic measurements greater than 150. Patient denies any chest pain. She has no shortness of breath. She has no neurologic deficits. Given the patient's degree of symptoms it was recommended to patient to obtain CT scanner with angiography to evaluate for potential arterial dissections. Risks and benefits were discussed with the patient. She is agreeable. Laboratory evaluation obtained mild leukocytosis 16.7 likely normal physiology for . Metabolic panel is unremarkable. Renal markers are unremarkable. Urinalysis results was given to me via paper due to EMR down time did not show any signs of infection. No proteinuria. Patient's blood pressures are improved after having given IV analgesics. Patient reevaluated bedside found in stable medical condition. Patient was initially treated and evaluated using fever charts due to unexpected EMR down time. Please see paper chart for more details of the history and physical. CT angiography of the chest shows no evidence for thoracic aortic aneurysm or dissection. CT angiography of the neck shows no evidence for stenosis or dissection. Case is briefly discussed with Dr. 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 Castro. She reports that patient's sympto matologies. Unusual for preeclampsia or eclampsia. Patient observed in the emergency department for approximately 6 hours and 50 minutes patient reevaluated at bedside at 4:30 PM. Patient is well-appearing. She is tolerating oral intake at the bedside. She is not having any symptoms of headache, neurologic issues, difficulty breathing, vision changes or altered mental status. Blood pressure is improved to 142/87. Patient states her symptoms of pain are improved also. Patient case rediscussed with Dr. Crouch reports that patient's blood pressure normally runs in the 140/80s in the offic e. - Lab Data Result diagrams: 02/11/22 10:34 02/11/22 10:34 Lab Results 02/11/22 02/11/22 02/11/22 Range/Units 10:34 10:34 10:34 WBC 16.7 H (3.8-10.6) k/uL RBC 3.87 (3.80-5.40) m/uL Hgb 11.8 (11.4-16.0) gm/dL Hct 34.9 (34.0-46.0) % MCV 90.3 (80.0-100.0) fL MCH 30.6 (25.0-35.0) pg MCHC 33.8 (31.0-37.0) g/dL RDW 14.7 (11.5-15.5) % Plt Count 379 (150-450) k/uL MPV 7.7 Neutrophils % 81 % Lymphocytes % 13 % Monocytes % 5 % Eosinophils % 0 % Basophils % 0 % Neutrophils # 13.4 H (1.3-7.7) k/uL Lymphocytes # 2.1 (1.0-4.8) k/uL Monocytes # 0.9 (0-1.0) k/uL Eosinophils # 0.1 (0-0.7) k/uL Basophils # 0.0 (0-0.2) k/uL Sodium 132 L (137-145) mmol/L Potassium 3.7 (3.5-5.1) mmol/L Chloride 106 (98-107) mmol/L Carbon Dioxide 22 (22-30) mmol/L Anion Gap 4 mmol/L BUN 6 L (7-17) mg/dL Creatinine 0.51 L (0.52-1.04) mg/dL Est GFR (CKD-EPI)AfAm >90 (>60 ml/min/1.73 sqM) Est GFR (CKD-EPI)NonAf >90 (>60 ml/min/1.73 sqM) Glucose 86 (74-99) mg/dL Uric Acid 3.1 L (3.7-7.4) mg/dL Calcium 8.5 (8.4-10.2) mg/dL Magnesium 1.7 (1.6-2.3) mg/dL Total Bilirubin 0.4 (0.2-1.3) mg/dL Conjugated Bilirubin 0.0 (0.0-0.3) mg/dL Unconjugated Bilirubin 0.3 (0.0-1.1) mg/dL Delta Bilirubin 0.1 (0.0-0.2) mg/dL AST 22 (14-36) U/L ALT 14 (4-34) U/L Alkaline Phosphatase 101 (38-126) U/L Lactate Dehydrogenase 514 (313-618) U/L Total Protein 6.2 L (6.3-8.2) g/dL Albumin 3.3 L (3.5-5.0) g/dL Urine Color Light Yellow Urine Appearance Clear (Clear) Urine pH 7.0 (5.0-8.0) Ur Specific [place] 1.004 (1.001-1.035) Urine Protein Negative (Negative) Urine Glucose (UA) Negative (Negative) Urine Ketones 1+ H (Negative) Urine Blood Negative (Negative) Urine Nitrite Negative (Negative) Urine Bilirubin Negative (Negative) Urine Urobilinogen <2.0 (<2.0) mg/dL Ur Leukocyte Esterase Negative (Negative) Urine RBC 1 (0-5) /hpf Urine WBC 1 (0-5) /hpf Urine Bacteria Moderate H (None) /hpf Disposition Clinical Impression: Neck pain Disposition: HOME SELF-CARE Condition: Good Instructions (If sedation given, give patient instructions): Muscle Spasm (ED) Is patient prescribed a controlled substance at d/c from ED?: No Referrals: Jessi Castro DO [Doctor of Osteopathic Medicine] - 1-2 days
--- NOTE | 2022-02-11 14:27 | CT ---
EXAMINATION TYPE: CT angio chest DATE OF EXAM: 02/11/2022 COMPARISON: None HISTORY: suspected arterial dissection, arm numbness CT DLP: 1209.8 mGycm CONTRAST: CTA thoracic aorta with 3-D reconstruction is performed and without and with IV Contrast, patient inj ected with 50 mL of Isovue 370. Contrast CTA of the thoracic aorta was performed from the lung apex through the upper abdomen. 3D re construction imaging obtained at a separate workstation. CT Chest: THORACIC AORTA: No evidence for thoracic aortic aneurysm. Mild atheromatous changes seen. There is n o evidence for dissection or periaortic collection. LUNGS: The lungs are clear and free of infiltrate or atelectasis. No pulmonary nodule or mass is det ected. No pleural effusion or CT evidence of interstitial lung disease. MEDIASTINUM: No evidence for mediastinal hematoma. The heart is not enlarged. No evidence for med iastinal mass or adenopathy. HILAR STRUCTURES: No evidence for mass. No hilar adenopathy is appreciated. OTHER: No significant abnormality. IMPRESSION- No evidence for thoracic aortic aneurysm or dissection.
--- NOTE | 2022-02-11 14:30 | CT ---
EXAMINATION TYPE: CT angio neck DATE OF EXAM: 02/11/2022 COMPARISON: none HISTORY: suspected arterial dissection, arm numbness CT DLP: 408.3 mGycm CONTRAST: CTA cervical carotids is performed and with IV Contrast, patient injected with 50 mL of Isovue 370. Contrast CTA of the cervical carotids was performed 3-D reconstruction imaging obtained at a separate workstation. Right carotid system: No significant plaque is seen of the right common carotid artery. There is mi ld plaque also noted at the carotid bulbNo significant plaque identified. ECA is patent. Right vert ebral artery appears unremarkable. Left carotid system: No significant plaque is seen of the left common carotid artery. No significant plaque identified. ECA is patent. Left vertebral artery appears unremarkable. IMPRESSION: No evidence for stenosis or dissection. NASCET criteria was used in interpretation of this exam?
[2022-02-11] MEDS ORDERED: MORPHINE SULFATE 4 MG/ML SYRINGE IV STA (14:56)
[2022-02-11 15:01] LABS: Basophils % (A) 0 %; Eosinophils # (A) 0.1 k/uL (0-0.7); Eosinophils % (A) 0 %; HCT 34.9 % (34.0-46.0); HGB 11.8 gm/dL (11.4-16.0); Lymphocytes # (A) 2.1 k/uL (1.0-4.8); Lymphocytes % (A) 13 %; MCH 30.6 pg (25.0-35.0); MCHC 33.8 g/dL (31.0-37.0); MCV 90.3 fL (80.0-100.0); Mean Platelet Volume 7.7; Monocytes # (A) 0.9 k/uL (0-1.0); Monocytes % (A) 5 %; Neutrophils # (A) 13.4 k/uL (1.3-7.7); Neutrophils % (A) 81 %; Platelet Count 379 k/uL (150-450); RBC 3.87 m/uL (3.80-5.40); RDW 14.7 % (11.5-15.5); WBC 16.7 k/uL (3.8-10.6)
[2022-02-11 16:05] LABS: ALT 14 U/L (4-34); AST 22 U/L (14-36); African American GFR (CKD) >90 (>60 ml/min/1.73 sqM); Albumin 3.3 g/dL (3.5-5.0); Alkaline Phosphatase 101 U/L (38-126); Anion Gap 4 mmol/L; Blood Urea Nitrogen 6 mg/dL (7-17); Calcium 8.5 mg/dL (8.4-10.2); Carbon Dioxide 22 mmol/L (22-30); Chloride 106 mmol/L (98-107); Glucose 86 mg/dL (74-99); Magnesium 1.7 mg/dL (1.6-2.3); Non-African American GFR(CKD) >90 (>60 ml/min/1.73 sqM); Potassium 3.7 mmol/L (3.5-5.1); Sodium 132 mmol/L (137-145); Total Bilirubin 0.4 mg/dL (0.2-1.3); Total Protein 6.2 g/dL (6.3-8.2)
[2022-02-11 16:20] LABS: Appearance,Urine Clear (Clear); Bacteria,Urine Moderate /hpf; Bilirubin,Urine Negative (Negative); Blood,Urine Negative (Negative); Color,Urine Light Yellow; Glucose,Urine (UA) Negative (Negative); Ketones,Urine 1+ (Negative); Leukocyte Esterase,Urine Negative (Negative); Nitrite,Urine Negative (Negative); Protein,Urine Negative (Negative); RBC,Urine 1 /hpf (0-5); Specific Gravity,Urine 1.004 (1.001-1.035); Urobilinogen,Urine <2.0 mg/dL (<2.0); WBC,Urine 1 /hpf (0-5)
[2022-02-11 16:24] LABS: Bilirubin, Delta 0.1 mg/dL (0.0-0.2); Bilirubin,Unconjugated 0.3 mg/dL (0.0-1.1); LDH 514 U/L (313-618); Uric Acid 3.1 mg/dL (3.7-7.4)
== END 2022-02-11 17:09 | disposition home or self-care (01) ==
LOC: EC 09:40
DX: O26.892 Other specified pregnancy related conditions, second trimester (principal); M54.2 Cervicalgia; Z3A.26 26 weeks gestation of pregnancy
CPT/HCPCS: 36415; 80053; 82248; 83615; 83735; 84550; 85025; 81003; 70498; 71275; 99284; 96374; J2270; Q9967; 93005

== ENCOUNTER 2022-02-13 12:41 | Outpatient (CLI) | payer BC, OTHER ==
[2022-02-13 13:52] LABS: Basophils % (A) 0 %; Eosinophils # (A) 0.1 k/uL (0-0.7); Eosinophils % (A) 1 %; HCT 37.6 % (34.0-46.0); HGB 12.3 gm/dL (11.4-16.0); Lymphocytes # (A) 1.7 k/uL (1.0-4.8); Lymphocytes % (A) 13 %; MCH 30.2 pg (25.0-35.0); MCHC 32.6 g/dL (31.0-37.0); MCV 92.5 fL (80.0-100.0); Mean Platelet Volume 7.1; Monocytes # (A) 0.6 k/uL (0-1.0); Monocytes % (A) 5 %; Neutrophils # (A) 9.9 k/uL (1.3-7.7); Neutrophils % (A) 79 %; Platelet Count 378 k/uL (150-450); RBC 4.07 m/uL (3.80-5.40); RDW 14.7 % (11.5-15.5); WBC 12.5 k/uL (3.8-10.6)
[2022-02-13 14:04] LABS: ALT 14 U/L (4-34); AST 19 U/L (14-36); African American GFR (CKD) >90 (>60 ml/min/1.73 sqM); Blood Urea Nitrogen 4 mg/dL (7-17); LDH 325 U/L (313-618); Non-African American GFR(CKD) >90 (>60 ml/min/1.73 sqM); Uric Acid 3.4 mg/dL (3.7-7.4)
[2022-02-13] MEDS ORDERED: ACETAMINOPHEN TAB 325 MG TAB PO STA (14:05)
[2022-02-13 14:13] LABS: Creatinine,Urine Random 335.7 mg/dL; Protein/Creatinine Ratio,Urine 0.077
[2022-02-13 14:14] LABS: Amorphous Sediment,Urine Few /hpf; Appearance,Urine Cloudy (Clear); Bilirubin,Urine Negative (Negative); Blood,Urine Negative (Negative); Color,Urine Dark Yellow; Glucose,Urine (UA) Negative (Negative); Hyaline Casts,Urine 1 /lpf (0-2); Ketones,Urine 1+ (Negative); Leukocyte Esterase,Urine Trace (Negative); Mucus,Urine Many /hpf; Nitrite,Urine Negative (Negative); PH, Urine 6.5 (5.0-8.0); Protein,Urine 1+ (Negative); RBC,Urine 1 /hpf (0-5); Specific Gravity,Urine 1.028 (1.001-1.035); Squamous Epithelial Cell,Urine 1 /hpf (0-4); WBC,Urine 8 /hpf (0-5)
[2022-02-13 14:42] LABS: INR 0.8 (<1.2); Partial Thromboplastin Time 24.4 sec (22.0-30.0); Prothrombin Time 9.5 sec (9.0-12.0)
[2022-02-13] MEDS ORDERED: MORPHINE SULFATE 2 MG/ML SYRINGE IVP STA (15:07)
[2022-02-13 17:39] VITALS: BP 143/96; PULSE 109; RESP 18; TEMP 98.6
--- NOTE | 2022-02-18 08:41 | P.MSEPDOC ---
Presenting Problems - Arrival Data Date of Arrival on Unit: 02/13/22 Time of Arrival on Unit: 12:41 Mode of Transport: Ambulatory - Complaint OB-Reason for Admission/Chief Complaint: Headache, PIH Comment: rule out PIH Medical History - Information : 2 Para: 1 Term: 1 : 0 Abortions: Spontaneous or Elective: 0 Number of Living Children: 1 - Gestational Age Gestational Age by LAVERNE (wks/days): 26 Weeks and 5 Days Review of Systems - Review of Systems Constitutional: No problems Breast: No problems ENT: No problems Cardiovascular: No problems Respiratory: No problems Gastrointestinal: No problems Genitourinary: No problems Musculoskeletal: No problems Neurological: Dizziness Skin: No problems Vital Signs - Temperature Temperature: 98.6 F Temperature Source: Oral - Pulse Right Pulse Rate: 109 Pulse Assessment Method: Automatic Cuff - Respirations Respiratory Rate: 18 Oxygen Delivery Method: Room Air O2 Sat by Pulse Oximetry: 98 - Blood Pressure Right Arm Blood Pressure: 143/96 Blood Pressure Mean: 111 Blood Pressure Source: Automatic Cuff Medical Screen Scoring - Assessment - Baby A Baseline FHR: 135 Physician Notification - Physician Notified Physician Notified Date: 02/13/22 Physician Notified Time: 16:35 Physician: Jessi Castro - Notification Comment Comment: RN updated Dr. Castro on pt's status. PN has decreased from 05/29 to 02/26. Pt may. DC home. Pt to remain off of work until follow up in the office on 02/19 d/t dizziness. when ambulating. If pt feels better prior to apt, she may call for an earlier visit to. return to work. It is also suggested that pt take tylenol for PN, apply warm compresses. 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 Maternal Triage Index - Maternal Triage Index Presenting for scheduled procedure w/no complaint: No - Stat/Priority 1 Stat Priority 1: No - Urgent/Priority 2 Urgent Priority 2: Yes Provider Notified: Jessi Castro Provider Notified Time: 13:16 Criteria Met for Priority 2: 02/13/22 1316: RN reported to Dr. Castro maternal/ status, FHTs, pt c/o SAMS, blurred vision,. diaphoretic, PN in bilateral arms. BPs given to Dr. Castro. RN to order pre-eclamptic. labs, 650mg Tylenol for PN, warm blanket to neck. RN to report back to Dr. Castro with. results. 02/13/22 1525: RN reported to Dr. Castro maternal/ status, FHTs, pt c/o SAMS has not improved. with Tylenol. BPs are WNL. Labs reviewed with Dr. Castro as well. Per Dr. Castro, no. concerns for pre-eclampsia, labs WNL, pt's increased BPs are likely d/t pain in her neck. and SAMS. RN to order and administer 2mg IV morphine, and call back after post-admin. assessment. 02/13/22 1635: RN updated Dr. Castro on pt's status. PN has decreased from 05/29 to 02/26. Pt may. DC home. Pt to remain off of work until follow up in the office on 02/19 d/t dizziness. when ambulating. If pt feels better prior to apt, she may call for an earlier visit to. return to work. It is also suggested that pt take tylenol for PN, apply warm compresses. 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 Disposition - Disposition OB Disposition: Discharge to home Discharge Date: 02/13/22 Discharge Time: 16:40 I agree with the RN Medical Screening Exam: Yes Case reviewed; plan agreed upon as documented in EMR&OBIX.: Yes Diagnosis: GESTATNL HTN W/O SIGNIFICANT PROTEINURIA, SECOND TRIMESTER Additional Diagnoses: Headache
== END 2022-02-13 16:40 | disposition home or self-care (01) ==
LOC: FBPOP 12:41
PROVIDERS: ATTEND Obstetrics & Gynecology
DX: O13.2 Gestational [pregnancy-induced] hypertension without significant proteinuria, second trimester (principal); R51.9 Headache, unspecified; Z3A.26 26 weeks gestation of pregnancy
CPT/HCPCS: 59025; 99215; 96374; 82570; 84156; 82565; 83615; 84450; 84460; 84520; 84550; 85025; 85384; 85610; 85730; 81001; J2270

== ENCOUNTER 2022-04-18 12:15 | Inpatient (IN) | payer BC, OTHER ==
[2022-04-18 13:18] LABS: Appearance,Urine Clear (Clear); Bilirubin,Urine Negative (Negative); Blood,Urine Negative (Negative); Color,Urine Light Yellow; Glucose,Urine (UA) Negative (Negative); Ketones,Urine Negative (Negative); Leukocyte Esterase,Urine Negative (Negative); Nitrite,Urine Negative (Negative); Protein,Urine Negative (Negative); Specific Gravity,Urine 1.007 (1.001-1.035); Urobilinogen,Urine <2.0 mg/dL (<2.0)
[2022-04-18 13:18] LABS: Basophils % (A) 0 %; Eosinophils # (A) 0.1 k/uL (0-0.7); Eosinophils % (A) 1 %; HCT 36.1 % (34.0-46.0); HGB 12.2 gm/dL (11.4-16.0); Lymphocytes # (A) 1.6 k/uL (1.0-4.8); Lymphocytes % (A) 14 %; MCH 31.1 pg (25.0-35.0); MCHC 33.9 g/dL (31.0-37.0); Mean Platelet Volume 8.5; Monocytes # (A) 0.6 k/uL (0-1.0); Monocytes % (A) 5 %; Neutrophils # (A) 9.4 k/uL (1.3-7.7); Neutrophils % (A) 79 %; Platelet Count 302 k/uL (150-450); RBC 3.92 m/uL (3.80-5.40); RDW 13.8 % (11.5-15.5); WBC 11.9 k/uL (3.8-10.6)
[2022-04-18 13:30] LABS: ALT 13 U/L (4-34); AST 18 U/L (14-36); African American GFR (CKD) >90 (>60 ml/min/1.73 sqM); Blood Urea Nitrogen 7 mg/dL (7-17); LDH 376 U/L (313-618); Non-African American GFR(CKD) >90 (>60 ml/min/1.73 sqM); Uric Acid 3.8 mg/dL (3.7-7.4)
[2022-04-18 13:30] LABS: Creatinine,Urine Random 46.6 mg/dL; Protein/Creatinine Ratio,Urine 0.536
[2022-04-18] MEDS ORDERED: CITRIC ACID-SODIUM CITRATE 15 ML CUP PO ONE (13:48)
[2022-04-18] MEDS: LACTATED RINGERS 1,000 ML IV SCH ×2 (15:32→18:09)
[2022-04-18 16:49] LABS: INR 0.8 (<1.2); Partial Thromboplastin Time 23.8 sec (22.0-30.0); Prothrombin Time 9.3 sec (9.0-12.0)
[2022-04-18] MEDS ORDERED: MAGNESIUM SULFATE GM 6 GM in SODIUM CHLORIDE 0.9% 100 ML IVPB ONE (17:07)
[2022-04-18] MEDS: MAGNESIUM SULFATE-WATER PMX 20 GM in WATER FOR INJECTION 1 500ML.BAG IV SCH (17:53)
--- NOTE | 2022-04-18 18:28 | P.HPOB ---
History of Present Illness H&P Date: 04/18/22 Chief Complaint: Headache, elevated blood pressures This is a 42-year-old female 2 para 1 with an estimated date of confinement of 05/17/2022, estimated gestational age of 35-6/7 weeks, who presented to labor and delivery with complaints of a migraine headache that has not improved with Tylenol and Zofran. Her blood pressures also were elevated at home. She did have elevated blood pressures in the severe category on admission but they did come down with rest. Patient has continued to have headaches off and on since arrival. She has been followed by high risk maternal medicine throughout the and they had recommended delivery at 37 weeks due to gestational hypertension and then preeclampsia diagnosis. She was scheduled in 2 weeks for a repeat section. Since arrival, she has been feeling irregular contractions that have been getting stronger. She has consented to repeat section with bilateral partial salpingectomy p ivana. labs: GC/Chlamydia/Trichomonas-negative Hemoglobin-10.5 Blood type-A+ Rubella-immune HIV-nonreactive Random glucose-80 Antibody screen-negative RPR-nonreactive Hepatitis B surface antigen-negative One hour Glucola-109 Review of Systems Constitutional: Reports fatigue, Denies chills, Denies fever Eyes: denies blurred vision, denies pain Ears, nose, mouth and throat: Reports headache Cardiovascular: Denies chest pain, Denies shortness of breath Respiratory: Denies cough Gastrointestinal: Reports abdominal pain (Contractions), Reports nausea Genitourinary: Reports pelvic pain, Reports Musculoskeletal: Reports low back pain Integumentary: Denies pruritus, Denies rash Neurological: Denies numbness, Denies weakness Psychiatric: Reports anxiety, Reports depression Past Medical History Past Medical History: Rheumatoid Arthritis (RA) Additional Past Medical History / Comment(s): fibermyalgia, [place] at 15yr old, f atty liver (non alcoholic), PCOS History of Any Multi-Drug Resistant Organisms: None Reported Past Surgical History: Section, Tonsillectomy Additional Past Surgical History / Comment(s): D&C, rhinoplasty Past Anesthesia/Blood Transfusion Reactions: No Reported Reaction Past Psychological History: Anxiety, Depression Smoking Status: Never smoker Past Alcohol Use History: None Reported Past Drug Use History: None Reported - Past Family History Mother Family Medical History: Hypertension Medications and Allergies Home Medications Medication Instructions Recorded Confirmed Type DULoxetine HCL [Cymbalta] 120 mg PO HS 02/25/19 04/18/22 History Vit No.180/Iron/Folic 1 tab PO HS 02/11/22 04/18/22 History [ Plus Tablet] Aspirin 81 mg PO DAILY 03/12/22 04/18/22 History Acetaminophen Tab [Tylenol] 1,000 mg PO Q6H PRN 04/18/22 04/18/22 History Ondansetron [Zofran] 1 tab PO DIRECTED PRN 04/18/22 04/18/22 History Allergies Allergy/AdvReac Type Severity Reaction Status Date / Time No Known Allergies Allergy Verified 04/18/22 12:34 Exam Osteopathic Statement: *. No significant issues noted on an osteopathic structural exam other than those noted in the History and Physical/Consult. Vital Signs Temp Pulse Resp BP Pulse Ox 04/18/22 14:14 97.0 F L 90 16 145/89 97 04/18/22 13:40 97.0 F L 100 16 174/94 98 Intake and Output 04/18/22 04/18/22 04/18/22 06:59 14:59 22:59 Other: Weight 81.647 kg HEENT: Within normal limits Heart: Regular rate and rhythm Lungs: Clear to auscultation bilaterally Abdomen: heart tones: Category 1 Contractions: Irregular Extremities: Negative Homans Results Result Diagrams: 04/18/22 13:00 04/18/22 13:00 Abnormal Lab Results - Last 24 Hours (Table) 04/18/22 Range/Units 13:00 WBC 11.9 H (3.8-10.6) k/uL Neutrophils # 9.4 H (1.3-7.7) k/uL Assessment and Plan (1) 35 weeks gestation of Current Visit: Yes Status: Acute Code(s): Z3A.35 - 35 WEEKS GESTATION OF SNOMED Code(s): 58854659 (2) Severe preeclampsia Current Visit: Yes Status: Acute Code(s): O14.10 - SEVERE PRE-ECLAMPSIA, UNSPECIFIED TRIMESTER SNOMED Code(s): 70698724 (3) Family planning Current Visit: Yes Status: Acute Code(s): Z30.09 - ENCOUNTER FOR OTH GENERAL CNSL AND ADVICE ON CONTRACEPTION SNOMED Code(s): 919516893 (4) Previous delivery affecting Current Visit: Yes Status: Acute Code(s): O34.219 - MATERNAL CARE FOR UNSP TYPE SCAR FROM PREVIOUS DEL SNOMED Code(s): 031159344 Plan: Start magnesium sulfate seizure prophylaxis. We will plan repeat section with bilateral partial salpingectomy. We'll continue close monitoring of blood pressures after delivery. At this time she does not have blood pressures in the severe category and therefore we will not push any antihyperte nsive's. I have discussed the risks, benefits, and alternative therapies for the above- mentioned procedure and for both sedation/anesthesia as well as necessary blood products administration, if indicated, as they pertain to this patient. The patient has indicated her understanding and acceptance of the risks and procedures discussed.
[2022-04-18] MEDS ORDERED: KETOROLAC 15 MG/ML 1 ML VIAL ONE (18:30)
[2022-04-18] MEDS ORDERED: NALBUPHINE 10 MG/ML (1 ML AMP) ONE (18:30)
[2022-04-18] MEDS ORDERED: MORPHINE SULFATE (PF) 0.3 MG/0.3 ML SYR ONE (18:30)
[2022-04-18] MEDS ORDERED: OXYTOCIN 30 UNITS/500 ML NS BAG IV ONE (18:30)
[2022-04-18] MEDS ORDERED: ONDANSETRON 4 MG/2 ML VIAL ONE (18:30)
[2022-04-18] MEDS ORDERED: ePHEDrine 50 MG/ML 1 ML VIAL ONE (18:30)
--- NOTE | 2022-04-18 19:21 | P.OP ---
Date of Procedure: 04/18/22 Preoperative Diagnosis: 1. Intrauterine at 35-6/7 weeks. 2. Severe preeclampsia. 3. History of previous section. 4. Family planning. Postoperative Diagnosis: Same Procedure(s) Performed: Repeat low transverse section with bilateral partial salpingectomy Anesthesia: spinal (Duramorph) Surgeon: Jessi Castro Layout Artist #1: Evans Del Toro Estimated Blood Loss (ml): 600 Pathology: other (Placenta, portions of right and left fallopian tubes) Condition: stable Disposition: floor Indications for Procedure: This is a 42-year-old female 2 para 1 at 35-6/7 weeks who presented to labor and delivery for complaints of elevated blood pressures and severe headache. She was noted to have blood pressures in the severe range. She did have steroids last week. She has been followed by maternal medicine. At this time the decision is made to proceed with delivery via section with bilateral partial salpingectomy due to severe preeclampsia. She is also started on magnesium sulfates seizure prophylaxis. I have discussed the risks, benefits, and alternative therapies for the above- mentioned procedure and for both sedation/anesthesia as well as necessary blood products administration, if indicated, as they pertain to this patient. The patient has indicated her understanding and acceptance of the risks and procedures discussed. Operative Findings: A viable female infant is noted in the vertex presentation with scores of 8 at 1 minute and 9 at 5 minutes and infant weight of 5 lbs. 15 oz. Nuchal cord times one was noted. Normal uterus tubes and ovaries are noted. Description of Procedure: The patient is taken to the operating room where she is placed in the dorsal supine position with leftward tilt after spinal Duramorph anesthesia is given. She is prepped and draped in the normal sterile fashion. Skin was tested and found to be adequately anesthetized. A Pfannenstiel skin incision was made with a scalpel with previous laparotomy scar. A second knife was used to carry the incision down to the underlying layer of fascia. The fascia was nicked in the midline with a scalpel and then extended laterally bilaterally with Scanlon scissors. The anterior lip of the fascia was grasped with 2 Lay clamps and then dissected off the underlying rectus muscle in the midline with Scanlon scissors. The inferior aspect of the fascial incision was grasped with 2 Lay clamps and dissected off the underlying rectus muscle and the midline with Scanlon scissors. Next the peritoneum layer was tented up with 2 hemostats and then entered sharply with the scalpel. The incision is extended superiorly and inferiorly with Metzenbaum scissors. Next a DeLee retractor is placed. The vesicouterine peritoneum is entered sharply with Metzenbaum scissors and extended laterally bilaterally with Metzenbaum scissors and then the bladder flap is pushed inferiorly. The lower uterine segment is incised in transverse fashion with the scalpel and then bluntly entered with a hemostat. Thin meconium fluid is noted. The incision was then extended laterally bilaterally with 2 fingers. Next the 's head is delivered through the incision. Nose and mouth are bulb suctioned. Nuchal cord 1 is reduced around the 's head. The remainder of the is easily delivered and placed on mother's abdomen. Cord is clamped and cut. is taken to warmer by nursing staff. Uterine fundus is gently massaged and placenta is delivered manually. Uterus is exteriorized and cleared of all clots and debris. Uterine incision is closed w ith 0 Vicryl suture in a running locked fashion. A second layer of 0 Vicryl suture is used in a running fashion for hemostasis. Once adequate hemostasis as assured, the vesicouterine peritoneum is reapproximated with 2-0 Vicryl suture in a running fashion. Attention is then turned to the fallopian tubes. The right fallopian tube is grasped in the midportion with a hemostat. Mesosalpinx is entered with Bovie cautery. 0 Vicryl suture is tied 2 times around both the proximal and distal portion of the tube. The knuckle of tube was then removed with Metzenbaum scissors. Hemostasis is achieved with Bovie cautery. The same procedure is carried out on the left fallopian tube. Posterior cul-de-sac is suctioned of all clots and debris. Uterus is returned to the abdomen. Incision is noted to be hemostatic. Both tubal sites are noted to be hemostatic. Peritoneal layer is closed with 0 Vicryl suture in a running fashion. Muscle layer is reapproximated with 0 Vicryl suture in interrupted fashion. Fascia layer is then closed with 0 PDS suture with 2 sutures meeting in the midline and the knots buried in either side and in the midline. The subcutaneous tissue was then closed with 2-0 Vicryl suture. Skin layer was then closed with mason. All sponge and needle counts are correct. The patient is taken to recovery room in stable condition.
[2022-04-18] MEDS ORDERED: ONDANSETRON 4 MG/2 ML VIAL IVP PRN (19:22)
[2022-04-18] MEDS ORDERED: OXYTOCIN 30 UNITS/500 ML NS 30 UNIT in SALINE 1 500ML.BAG IV SCH (19:22)
[2022-04-18] MEDS ORDERED: NALOXONE 0.4 MG/ML 1 ML VIAL IV PRN (19:22)
[2022-04-18] MEDS ORDERED: LANOLIN CREAM 5 GM TUBE TOPICAL PRN (19:22)
[2022-04-18] MEDS ORDERED: ZOLPIDEM 5 MG TAB PO PRN (19:22)
[2022-04-18] MEDS ORDERED: SIMETHICONE 80 MG CHEWABLE PO PRN (19:22)
[2022-04-18] MEDS ORDERED: diphenhydrAMINE 50 MG CAP PO PRN (19:22)
[2022-04-18] MEDS ORDERED: HYDROmorphone 1 MG/ML 1 ML SYRINGE IVP PRN (19:22)
[2022-04-18] MEDS ORDERED: diphenhydrAMINE 50 MG/ML 1 ML VIAL IVP PRN ×2 (19:22)
[2022-04-18] MEDS ORDERED: HYDROmorphone 0.5 MG/0.5 ML SYRINGE IVP PRN (19:22)
[2022-04-18] MEDS ORDERED: diphenhydrAMINE 25 MG CAP PO PRN (19:22)
[2022-04-18] MEDS: SENNOSIDES-DOCUSATE SODIUM 1 EACH TAB PO SCH (21:04)
[2022-04-18] MEDS: ACETAMINOPHEN IV (For NPO) 1,000 MG in EMPTY BAG 1 BAG IVPB SCH (21:19)
[2022-04-18] MEDS: DULoxetine HCL 60 MG CAPSULE.DR PO SCH (21:19)
[2022-04-19] MEDS: KETOROLAC 15 MG/ML 1 ML VIAL IVP SCH ×4 (00:11→18:43)
[2022-04-19] MEDS: IBUPROFEN 600 MG TAB PO SCH ×4 (00:13→22:51)
[2022-04-19] MEDS: ACETAMINOPHEN IV (For NPO) 1,000 MG in EMPTY BAG 1 BAG IVPB SCH (03:05)
[2022-04-19] MEDS: MAGNESIUM SULFATE-WATER PMX 20 GM in WATER FOR INJECTION 1 500ML.BAG IV SCH ×2 (03:11→14:59)
[2022-04-19] MEDS: METOCLOPRAMIDE 5 MG/ML 2 ML VIAL IVP PRN ×2 (03:28→09:11)
--- NOTE | 2022-04-19 07:17 | P.PN ---
Progress Note - Text 04/19 636am Post with spinal Duramorph. Patient seen and evaluated for postop pain control, she has a VAS of 1 with no complains of nausea vomiting, she has pruritus which is subsided. No other anesthesia related issue noted
--- NOTE | 2022-04-19 08:47 | P.PNOBGPC ---
Subjective - Subjective Principal diagnosis: Status post repeat with tubal postoperative day #1 Interval history: Patient is doing okay. She has had some nausea at night. She is tolerating clear liquids. She has her Ryan in due to magnesium sulfate seizure prophylaxis. Pain is fairly well controlled at this time. Patient reports: Reports pain well controlled, Reports nauseated : other (In level I nursery) Objective - Vital Signs Latest vital signs: Vital Signs Temp Pulse Resp BP Pulse Ox 04/19/22 08:16 84 16 136/88 98 04/19/22 07:32 97.0 F L 78 16 132/92 98 04/19/22 07:00 72 14 134/91 98 04/19/22 06:00 96.8 F L 86 16 130/85 98 04/19/22 05:00 82 14 141/81 98 04/19/22 04:00 96.1 F L 75 14 151/90 97 04/19/22 03:00 78 16 150/89 100 04/19/22 02:00 87 16 139/91 97 04/19/22 01:00 83 16 142/90 98 04/19/22 00:00 93 16 139/88 99 04/18/22 23:00 91 16 130/78 99 04/18/22 22:00 89 16 134/84 98 04/18/22 21:25 96.5 F L 86 14 149/87 98 04/18/22 20:55 96.1 F L 86 14 150/85 99 04/18/22 20:25 96.1 F L 85 16 143/87 98 04/18/22 20:10 84 14 153/79 99 04/18/22 19:55 96.3 F L 89 16 149/81 98 04/18/22 19:40 91 16 137/76 97 04/18/22 19:25 96.3 F L 87 14 139/73 96 04/18/22 14:14 97.0 F L 90 16 145/89 97 04/18/22 13:40 97.0 F L 100 16 174/94 98 Intake and Output 04/18/22 04/19/22 04/19/22 22:59 06:59 14:59 Intake Total 465 Output Total 1411 390 130 Balance -1411 75 -130 Intake: Intake, IV Titration 465 Amount Magnesium Sulfate-Water 465 Pmx 20 gm In Water For Injection 1 500ml.bag @ 2 GM/HR 50 mls/hr IV .Q10H [facility] Rx#:[id number] Output: Urine 200 390 130 Estimated Blood Loss 600 Output, Quantitative 611 Blood Loss Other: Voiding Method Indwelling Catheter Indwelling Catheter - Exam Extremities: Present: normal. Absent: tenderness Abdomen: Present: normal appearance, soft (Positive bowel sounds 4, slightly diminished). Absent: distention, tenderness Incision: Present: normal, dry, intact. Absent: erythematous Uterus: Present: normal, firm. Absent: tenderness - Labs Labs: Abnormal Lab Results - Last 24 Hours (Table) 04/18/22 Range/Units 13:00 WBC 11.9 H (3.8-10.6) k/uL Neutrophils # 9.4 H (1.3-7.7) k/uL Assessment and Plan Assessment: Status post repeat low transverse section with bilateral partial salpi ngectomy postoperative day #1 Severe preeclampsia-on magnesium sulfate seizure prophylaxis (1) 35 weeks gestation of Current Visit: Yes Status: Acute Code(s): Z3A.35 - 35 WEEKS GESTATION OF SNOMED Code(s): 68765894 (2) Severe preeclampsia Current Visit: Yes Status: Acute Code(s): O14.10 - SEVERE PRE-ECLAMPSIA, UNSPECIFIED TRIMESTER SNOMED Code(s): 18461859 (3) Family planning Current Visit: Yes Status: Acute Code(s): Z30.09 - ENCOUNTER FOR OTH GENERAL CNSL AND ADVICE ON CONTRACEPTION SNOMED Code(s): 312213449 (4) Previous delivery affecting Current Visit: Yes Status: Acute Code(s): O34.219 - MATERNAL CARE FOR UNSP TYPE SCAR FROM PREVIOUS DEL SNOMED Code(s): 091473807 Plan: Will continue magnesium sulfate seizure prophylaxis until 24 hours post delivery. Will continue to monitor blood pressures carefully. Will slowly advance diet after flatus.
[2022-04-19] MEDS: ACETAMINOPHEN TAB 500 MG TAB PO SCH ×3 (09:12→23:45)
[2022-04-19 09:13] LABS: Basophils % (A) 0 %; Eosinophils % (A) 0 %; HCT 29.6 % (34.0-46.0); HGB 10.1 gm/dL (11.4-16.0); Lymphocytes # (A) 1.2 k/uL (1.0-4.8); Lymphocytes % (A) 9 %; MCH 31.6 pg (25.0-35.0); MCV 92.9 fL (80.0-100.0); Mean Platelet Volume 8.2; Monocytes # (A) 0.4 k/uL (0-1.0); Monocytes % (A) 3 %; Neutrophils # (A) 12.3 k/uL (1.3-7.7); Neutrophils % (A) 86 %; Platelet Count 276 k/uL (150-450); RBC 3.19 m/uL (3.80-5.40); RDW 13.7 % (11.5-15.5); WBC 14.2 k/uL (3.8-10.6)
[2022-04-19] MEDS ORDERED: hydrALAZINE HCL 20 MG/ML 1 ML VIAL IVP PRN (16:59)
[2022-04-19] MEDS ORDERED: LABETALOL 5 MG/ML VIAL MDV IVP PRN ×3 (16:59)
[2022-04-19] MEDS: DULoxetine HCL 60 MG CAPSULE.DR PO SCH (20:56)
[2022-04-19] MEDS: SENNOSIDES-DOCUSATE SODIUM 1 EACH TAB PO SCH ×2 (22:50→22:51)
[2022-04-19] MEDS: LACTATED RINGERS 1,000 ML IV SCH ×3 (22:52→22:55)
[2022-04-20] MEDS: KETOROLAC 15 MG/ML 1 ML VIAL IVP SCH ×3 (00:24→12:35)
[2022-04-20] MEDS: IBUPROFEN 600 MG TAB PO SCH ×4 (00:27→20:44)
[2022-04-20] MEDS: ACETAMINOPHEN TAB 500 MG TAB PO SCH ×4 (05:05→23:24)
[2022-04-20] MEDS: LACTATED RINGERS 1,000 ML IV SCH (06:34)
[2022-04-20] MEDS: SENNOSIDES-DOCUSATE SODIUM 1 EACH TAB PO SCH ×2 (08:55→20:45)
--- NOTE | 2022-04-20 12:03 | P.PNOBGPC ---
Subjective - Subjective Principal diagnosis: Status post repeat section with tubal postoperative day #2 Interval history: Patient is doing well. She is starting to ambulate a little bit. She is urinating without difficulty. She is passing some flatus but no bowel movement yet. Her pain is well-controlled. She feels much better off of the magnesium sulfate. Baby is doing well in level I nursery. Patient reports: Reports appetite normal, Reports voiding normally, Reports pain well controlled, Reports ambulating normally Bailey: other (In level I nursery) Objective - Vital Signs Latest vital signs: Vital Signs Temp Pulse Resp BP Pulse Ox 04/20/22 08:00 99.1 F 79 16 153/88 96 04/20/22 04:00 97.6 F 75 16 146/76 96 04/19/22 23:29 98.4 F 77 18 159/85 97 04/19/22 20:00 99.4 F 83 16 138/83 95 04/19/22 18:10 88 16 146/88 04/19/22 17:00 96.8 F L 85 16 150/90 04/19/22 16:00 16 04/19/22 14:00 84 16 148/84 99 04/19/22 12:30 97.0 F L 72 16 132/82 Intake and Output 04/19/22 04/20/22 04/20/22 22:59 06:59 14:59 Intake Total 375 Output Total 1460 1950 Balance -1085 -1950 Intake: IV 375 Output: Urine 1460 1950 Other: # Voids 1 0 1 - Exam Extremities: Present: normal. Absent: tenderness, edema Abdomen: Present: normal appearance, soft (Positive bowel sounds 4). Absent: distention, tenderness Incision: Present: normal, dry, intact. Absent: erythematous Uterus: Present: normal, firm. Absent: tenderness Assessment and Plan Assessment: Status post repeat low transverse section with bilateral partial salpingectomy postoperative day #2 Severe preeclampsia -status post magnesium sulfate seizure prophylaxis (1) 35 weeks gestation of Current Visit: Yes Status: Acute Code(s): Z3A.35 - 35 WEEKS GESTATION OF SNOMED Code(s): 09673391 (2) Severe preeclampsia Current Visit: Yes Status: Acute Code(s): O14.10 - SEVERE PRE-ECLAMPSIA, UNSPECIFIED TRIMESTER SNOMED Code(s): 48594918 (3) Family planning Current Visit: Yes Status: Acute Code(s): Z30.09 - ENCOUNTER FOR OTH GENERAL CNSL AND ADVICE ON CONTRACEPTION SNOMED Code(s): 831599808 (4) Previous delivery affecting Current Visit: Yes Status: Acute Code(s): O34.219 - MATERNAL CARE FOR UNSP TYPE SCAR FROM PREVIOUS DEL SNOMED Code(s): 147756052 Plan: Blood pressures since magnesium sulfate has been turned off are trending upward a little bit. Will start labetalol 100 mg twice a day. Patient is encouraged to ambulate. She may shower. Will continue to observe blood pressures.
--- NOTE | 2022-04-20 12:08 | P.MSEPDOC ---
Presenting Problems - Arrival Data Date of Arrival on Unit: 04/18/22 Time of Arrival on Unit: 13:37 Mode of Transport: Ambulatory - Complaint OB-Reason for Admission/Chief Complaint: Headache, PIH Medical History - Information : 2 Para: 1 Term: 1 : 0 Abortions: Spontaneous or Elective: 0 Number of Living Children: 1 - Gestational Age Gestational Age by LAVERNE (wks/days): 35 Weeks and 6 Days - History Complications: Preeclampsia, Prior Review of Systems - Review of Systems Constitutional: No problems Breast: No problems ENT: No problems Cardiovascular: No problems Respiratory: No problems Gastrointestinal: No problems Genitourinary: No problems Musculoskeletal: No problems Neurological: No problems Skin: No problems Vital Signs - Temperature Temperature: 99.1 F Temperature Source: Oral - Pulse Right Sitting Pulse Rate: 79 Pulse Assessment Method: Pulse Oximetry - Respirations Respiratory Rate: 16 Oxygen Delivery Method: Room Air O2 Sat by Pulse Oximetry: 96 - Blood Pressure Right Arm Blood Pressure: 153/88 Blood Pressure Mean: 109 Blood Pressure Source: Automatic Cuff - Comment Vital Signs Comment: pt up at bedside Medical Screen Scoring - Assessment - Baby A Baseline FHR: 135 Heart Rate - NICHD Category: Category I (Normal) NST: Reactive Physician Notification - Physician Notified Physician Notified Date: 04/18/22 Physician Notified Time: 13:36 Physician: Jessi Castro New Order Received: Yes (admit for Repear section) Maternal Triage Index - Stat/Priority 1 Stat Priority 1: Yes Provider Notified: Jessi Castro Provider Notified Time: 12:46 Criteria Met for Priority 1: initial bp 174/94, headache Disposition - Disposition OB Disposition: Admit, LDRP Suite I agree with the RN Medical Screening Exam: Yes Case reviewed; plan agreed upon as documented in EMR&OBIX.: Yes Diagnosis: SEVERE PRE-ECLAMPSIA, THIRD TRIMESTER
[2022-04-20] MEDS: DULoxetine HCL 60 MG CAPSULE.DR PO SCH (20:45)
[2022-04-20] MEDS: LABETALOL 200 MG TAB PO SCH (20:45)
[2022-04-21] MEDS: IBUPROFEN 600 MG TAB PO SCH ×3 (04:26→11:59)
[2022-04-21] MEDS: ACETAMINOPHEN TAB 500 MG TAB PO SCH ×2 (08:33→08:34)
[2022-04-21] MEDS: LABETALOL 200 MG TAB PO SCH (08:34)
[2022-04-21] MEDS: SENNOSIDES-DOCUSATE SODIUM 1 EACH TAB PO SCH (08:34)
[2022-04-21 12:30] VITALS: BP 148/81; PULSE 74; RESP 16; TEMP 98.7
--- NOTE | 2022-04-21 12:47 | P.DS ---
Providers Date of admission: 04/18/22 13:45 Expected date of discharge: 04/21/22 Attending physician: Jessi Castro Primary care physician: Stated None - Discharge Diagnosis(es) (1) 35 weeks gestation of Current Visit: Yes Status: Acute (2) Severe preeclampsia Current Visit: Yes Status: Acute (3) Family planning Current Visit: Yes Status: Acute (4) Previous delivery affecting Current Visit: Yes Status: Acute Hospital Course: This is a 42-year-old female 2 para 1 who presented at 35-6/7 weeks with complaints of headache and just not feeling well along with elevated blood pressures. She was diagnosed with severe preeclampsia and proceeded to undergo a repeat low transverse section with bilateral partial salpingectomy on 04/18/2022. She delivered a viable female with scores of 8 at 1 minute and 9 at 5 minutes and infant weight of 5 lbs. 15 oz. She was placed on magnesium sulfate seizure prophylaxis for 24 hours after delivery. Her blood pressures did creep up a little bit after stopping magnesium sulfate. She has been in mostly the 140s to 150/80-90 range. She denies any headaches or blurry vision. She is urinating without difficulty. She is passing flatus and a small bowel movement. Baby is in level I nursery and she is bottle feeding. Since her baby does have to stay a little bit longer she would like to go home today if possible. She states she is not getting any sleep in the hospital. Vital signs are as described. Abdomen is soft with positive bowel sounds 4. Incision is clean dry and intact with mason in place. There is some ecchymosis on the right side upper edge of the incision and below the incision on her mons. Minimal tenderness is noted. Extremities show negative Homans. Impression is status post repeat low transverse section with bilateral partial salpingectomy postoperative day #3. Plan is to discharge home today. I will send her home on labetalol 200 mg twice a day. She is advised to follow up in the office with me later this week. She will continue to check her blood pressures at home and notify me if she has any blood pressures greater than 160 systolic or greater than 110 diastolic or if she has any new preeclamptic symptoms. She will also notify me if her blood pressure started going to lower she starts getting dizziness. Routine instructions are given. She is advised to follow up with me later this week for a postoperative check and in 6 weeks for check. Procedures: Repeat low transverse section with bilateral partial salpingectomy on 04/18/2022 Patient Condition at Discharge: Stable Plan - Discharge Summary New Discharge Prescriptions: New Labetalol [Trandate] 200 mg PO BID #28 tab Ibuprofen [Motrin] 600 mg PO Q6H #60 tab Continue DULoxetine HCL [Cymbalta] 120 mg PO HS Vit No.180/Iron/Folic [ Plus Vitamin-Mineral] 1 tab PO HS Discontinued Aspirin 81 mg PO DAILY No Action Ondansetron [Zofran] 1 tab PO DIRECTED PRN PRN Reason: Nausea Acetaminophen Tab [Tylenol] 1,000 mg PO Q6H PRN PRN Reason: Pain Discharge Medication List DULoxetine HCL [Cymbalta] 120 mg PO HS 02/25/19 [History] Vit No.180/Iron/Folic [ Plus Vitamin-Mineral] 1 tab PO HS 02/11/22 [History] Acetaminophen Tab [Tylenol] 1,000 mg PO Q6H PRN 04/18/22 [History] Ondansetron [Zofran] 1 tab PO DIRECTED PRN 04/18/22 [History] Ibuprofen [Motrin] 600 mg PO Q6H #60 tab 04/21/22 [Rx] Labetalol [Trandate] 200 mg PO BID #28 tab 04/21/22 [Rx] Follow up Appointment(s)/Referral(s): Jessi Castro DO [Doctor of Osteopathic Medicine] - 06/03/22 11:15 am (Post Op Appointment 04-25-2022 at 10:45) Activity/Diet/Wound Care/Special Instructions: Instructions 1. Do not begin any exercise program for 3 weeks. 2. Do not resume sexual relations for 3 weeks or longer if uncomfortable. 3. You may take tub baths or showers at any time. 4. You may use tampons if desired after 3 weeks. 5. Keep the area of episiotomy (stitches) clean and dry. 6. If you are not nursing, wear a good fitting, supportive bra during the day and limit fluid intake for at least 1 week to prevent breast engorgement. 7. Call the office, [phone], within the next week to make appointment for your 6 week checkup if it has not already been made. 8. Report any of the following occurrences to the doctor promptly: a. Heavy, excessive bleeding b. Chills, fever c. Burning or frequency of urination d. Pain or redness and breasts if nursing e. Increasing pain or swelling in episiotomy (stitches). In addition to the above instructions, the following additional should be followed: 1. No heavy lifting or straining (exercising) until after 6 week checkup. 2. Keep abdominal incision clean and dry: You may wear a dressing if more comfortable. 3. Make office appointment for 10 days after going home or as instructed by her doctor. Discharge Disposition: HOME SELF-CARE
== END 2022-04-21 13:30 | disposition home or self-care (01) | DRG 784 ==
LOC: FBPOP 12:15 → 4FBP 13:45
PROVIDERS: ADMIT Obstetrics & Gynecology; ATTEND Obstetrics & Gynecology
PROC: 10D00Z1 Extraction of Products of Conception, Low, Open Approach (ICD-10-PCS; 2022-04-18)
PROC: 3E0R3BZ Introduction of Anesthetic Agent into Spinal Canal, Percutaneous Approach (ICD-10-PCS; 2022-04-18)
PROC: 0UB70ZZ Excision of Bilateral Fallopian Tubes, Open Approach (ICD-10-PCS; principal; 2022-04-18 16:30)
DX: O14.14 Severe pre-eclampsia complicating childbirth (principal); O99.354 Diseases of the nervous system complicating childbirth; K76.0 Fatty (change of) liver, not elsewhere classified; M06.9 Rheumatoid arthritis, unspecified; F32.A Depression, unspecified; O26.62 Liver and biliary tract disorders in childbirth; Z3A.35 35 weeks gestation of pregnancy; Z37.0 Single live birth; G43.909 Migraine, unspecified, not intractable, without status migrainosus; E28.2 Polycystic ovarian syndrome; F41.9 Anxiety disorder, unspecified; O99.344 Other mental disorders complicating childbirth; L29.9 Pruritus, unspecified; O77.0 Labor and delivery complicated by meconium in amniotic fluid; O34.211 Maternal care for low transverse scar from previous cesarean delivery; O69.81X0 Labor and delivery complicated by cord around neck, without compression, not applicable or unspecified; Z30.2 Encounter for sterilization; Z86.19 Personal history of other infectious and parasitic diseases; Z90.89 Acquired absence of other organs; Z98.890 Other specified postprocedural states; Z82.49 Family history of ischemic heart disease and other diseases of the circulatory system; Z79.82 Long term (current) use of aspirin; Z79.899 Other long term (current) drug therapy
CPT/HCPCS: 36415; 59025; 81003; 82565; 82570; 83615; 84156; 84450; 84460; 84520; 84550; 85025; 85610; 85730; 86850; 86900; 86901; 88302; 88307; 99213

== ENCOUNTER → 2023-06-19 | Outpatient (CLI) | payer BC, OTHER ==
[2023-06-20 01:46] LABS: Basophils # (A) 0.04 X 10*3/uL (0.00-0.10); Basophils % (A) 0.5 %; Eosinophils # (A) 0.12 X 10*3/uL (0.04-0.35); Eosinophils % (A) 1.5 %; HCT 35.7 % (37.2-46.3); HGB 10.9 d/dL (12.0-15.0); Lymphocytes # (A) 2.37 X 10*3/uL (0.90-5.00); MCH 25.4 pg (27.0-32.0); MCHC 30.5 d/dL (32.0-37.0); MCV 83.2 FL (80.0-97.0); Mean Platelet Volume 9.1 FL (9.5-12.2); Monocytes # (A) 0.53 X 10*3/uL (0.20-1.00); Monocytes % (A) 6.5 %; NRBC Per 100 WBC 0 X 10*3/uL (0.00-0.01); Neutrophils # (A) 5.08 X 10*3/uL (1.80-7.70); Neutrophils % (A) 62.3 %; Platelet Count 447 X 10*3/uL (140-440); RBC 4.29 X 10*6/uL (4.10-5.20); RDW 15.2 % (11.5-14.5); WBC 8.16 X 10*3/uL (4.50-10.00)
[2023-06-20 02:51] LABS: ALT 13 U/L (8-44); AST 18 U/L (13-35); Albumin 4.3 d/dL (3.8-4.9); Albumin/Globulin Ratio 2.15 Ratio (1.60-3.17); Alkaline Phosphatase 76 U/L (41-126); BUN/Creat Ratio 10.62 Ratio (12.00-20.00); Blood Urea Nitrogen 8.5 mg/dL (9.0-27.0); C Reactive Protein <0.30 mg/dL (0.00-0.80); Calcium 9.5 mg/dL (8.7-10.3); Carbon Dioxide 25.2 mmol/L (21.6-31.8); Chloride 105 mmol/L (96-109); Creatine Kinase 86 U/L (26-186); Glucose 89 mg/dL (70-110); Potassium 3.9 mmol/L (3.5-5.5); Sodium 140 mmol/L (135-145); Total Bilirubin <0.2 mg/dL (0.3-1.2); Total Protein 6.3 d/dL (6.2-8.2); Uric Acid 3.4 mg/dL (2.9-7.7)
[2023-06-20 06:36] LABS: Cyclic Citrull Pep IgG Unit <1.5 U/mL (<=3.9); Cyclic Citrullinated Pep IgG Negative
[2023-06-20 23:36] LABS: Erythrocyte Sedimentation Rate 6 mm/Hr (0-20)
== END | disposition home or self-care (01) ==
LOC: LABWHC1 16:29
PROVIDERS: ATTEND Family Medicine
DX: I10 Essential (primary) hypertension (principal); M06.9 Rheumatoid arthritis, unspecified; K76.0 Fatty (change of) liver, not elsewhere classified; M79.7 Fibromyalgia; D53.8 Other specified nutritional anemias
CPT/HCPCS: 36415; 80053; 82306; 82550; 82607; 83036; 84550; 85025; 85652; 86038; 86140; 86200